=== PATIENT | female | born 1950 | race Caucasian/White ===

== ENCOUNTER → 2016-02-29 | Outpatient (CLI) | payer MEDICARE ==
[~2016-02-29] MED LIST: ACET500C PO; AMLO5TAB2 PO; CAL-500T PO; CALCIUM LACTATE PO; CARV25TA PO; OMEP20CA3 PO; SPIR25TA2 PO; VITA200019 PO; VITATAB11 PO; [UNRECOGNIZED DRUG - OTHER] TD; magnesium PO
--- NOTE | 2016-02-29 17:28 | REP ---
PELVIC ULTRASOUND: Real-time sonographic evaluation of the pelvis performed utilizing transabdominal and endovaginal technique. The bladder measures 13.3 x 6.5 x 8.8 cm. The uterus measures 11.8 x 5.0 x 6.9 cm. Endometrial stripe measures 5 mm. There is no endometrial fluid collection. Right-sided fibroid measures 3.5 x 3.0 x 2.9 cm. There appears to be an 8 mm fibroid posteriorly. Ovaries are normal in size and echotexture, the right ovary measuring 2.6 x 1.9 x 2.3 cm and left ovary 2.5 x 1.4 x 1.9 cm. There is no adnexal mass or free fluid. IMPRESSION: Uterine fibroids. No adnexal mass or free fluid.
== END ==
LOC: M WHC 12:54
PROVIDERS: ATTEND Nurse Practitioner Women's Health
DX: D25.9 Leiomyoma of uterus, unspecified (principal)

== ENCOUNTER → 2016-03-14 | Outpatient (REF) | payer MEDICARE ==
[2016-03-14 11:55] LABS: ALBUMIN 3.7 GM/DL (3.2-5.2); ALBUMIN/GLOBULIN RATIO 1.32 (1.00-1.93); ALKALINE PHOSPHATASE 88 U/L (45-117); ALT/SGPT 25 U/L (12-78); ANION GAP 12 MEQ/L (8-16); AST/SGOT 13 U/L (15-37); BLOOD UREA NITROGEN 15 MG/DL (7-18); CALCIUM LEVEL 8.9 MG/DL (8.8-10.2); CARBON DIOXIDE LEVEL 27 MEQ/L (21-32); CHLORIDE LEVEL 106 MEQ/L (98-107); CHOLESTEROL LEVEL 178 MG/DL (<200); CREATININE FOR GFR 0.72 MG/DL (0.55-1.02); GLOMERULAR FILTRATION RATE > 60.0 (>45); GLUCOSE, FASTING 102 MG/DL (80-110); POTASSIUM SERUM 4.3 MEQ/L (3.5-5.1); SODIUM LEVEL 145 MEQ/L (136-145); TOTAL PROTEIN 6.5 GM/DL (6.4-8.2); TRIGLYCERIDES LEVEL 165 MG/DL (<150)
== END ==
LOC: M SFHCPLAZ 08:30
PROVIDERS: ATTEND Family Medicine
DX: E78.2 Mixed hyperlipidemia (principal); K21.0 Gastro-esophageal reflux disease with esophagitis

== ENCOUNTER → 2016-05-29 | Outpatient (CLI) | payer MEDICARE | LOC: M PAIN 08:40 | PROVIDERS: ATTEND Nurse Practitioner Family | DX: Z09 Encounter for follow-up examination after completed treatment for conditions other than malignant neoplasm (principal); G89.29 Other chronic pain; M47.816 Spondylosis without myelopathy or radiculopathy, lumbar region; G57.00 Lesion of sciatic nerve, unspecified lower limb; I10 Essential (primary) hypertension; K21.9 Gastro-esophageal reflux disease without esophagitis; E78.5 Hyperlipidemia, unspecified; E88.81 Metabolic syndrome and other insulin resistance; E55.9 Vitamin D deficiency, unspecified; Z88.8 Allergy status to other drugs, medicaments and biological substances; Z88.2 Allergy status to sulfonamides; Z79.899 Other long term (current) drug therapy ==

== ENCOUNTER → 2016-06-14 | Outpatient (REF) | payer MEDICARE ==
[2016-06-14 12:12] LABS: ALBUMIN 3.6 GM/DL (3.2-5.2); ALBUMIN/GLOBULIN RATIO 1.24 (1.00-1.93); ALKALINE PHOSPHATASE 93 U/L (45-117); ALT/SGPT 26 U/L (12-78); ANION GAP 8 MEQ/L (8-16); AST/SGOT 13 U/L (15-37); BILIRUBIN,TOTAL 0.8 MG/DL (0.2-1.0); BLOOD UREA NITROGEN 10 MG/DL (7-18); CALCIUM LEVEL 8.4 MG/DL (8.8-10.2); CARBON DIOXIDE LEVEL 28 MEQ/L (21-32); CHLORIDE LEVEL 108 MEQ/L (98-107); CREATININE FOR GFR 0.75 MG/DL (0.55-1.02); GLOMERULAR FILTRATION RATE > 60.0 (>45); GLUCOSE, FASTING 97 MG/DL (80-110); POTASSIUM SERUM 4.1 MEQ/L (3.5-5.1); SODIUM LEVEL 144 MEQ/L (136-145); TOTAL PROTEIN 6.5 GM/DL (6.4-8.2)
== END ==
LOC: M SFHCPLAZ 08:31
PROVIDERS: ATTEND Nurse Practitioner Family
DX: I10 Essential (primary) hypertension (principal); E55.9 Vitamin D deficiency, unspecified

== ENCOUNTER → 2016-07-07 | Outpatient (CLI) | payer MEDICARE ==
--- NOTE | 2016-07-07 12:27 | REPMRS ---
Patient History The patient states she has not had a clinical breast exam in over a year. Patient is postmenopausal. Family history of breast cancer in sister at age 48. Digital Woman Screen Mammo: July 07, 2016 - Exam #: [id number] Bilateral CC and MLO view(s) were taken. Technologist: Maribell Fuchs, Technologist Prior study comparison: July 08, 2015, digital woman screen mammo performed at [facility] to [facility]. May 19, 2014, digital woman screen mammo performed at [facility] to [facility]. FINDINGS: There are scattered fibroglandular densities. There has been no change in the appearance of the mammogram from the prior studies. There is a mild amount of residual fibroglandular tissue which is fairly symmetric. There is no interval development of dominant mass, architectural distortion, or clustered microcalcification suggestive of malignancy. ASSESSMENT: BI-RADS/ACR category 1 mammogram. Negative. Recommendation Routine screening mammogram in 1 year (for women over age 40). This mammogram was interpreted with the aid of an FDA-approved computer-aided dectection system. Electronically Signed By: Kip Khanna MD 07/07/16 [id number]
== END ==
LOC: M WHC 11:07
PROVIDERS: ATTEND Family Medicine
DX: Z12.31 Encounter for screening mammogram for malignant neoplasm of breast (principal); Z78.0 Asymptomatic menopausal state

== ENCOUNTER → 2016-11-27 | Outpatient (CLI) | payer MEDICARE ==
--- NOTE | 2016-12-26 02:25 | ECWPNPC ---
PATIENT NAME: REE PERRY : 1950 GENDER: FEMALE VISIT DATE: 11/27/2016 DISCHARGE DATE: 11/27/16919 VISIT LOCKED DATE TIME: PHYSICIAN: FRED WILKINS PHYSICIAN PAGER NO: [phone] RESOURCE: FRED WILKINS REASON FOR APPOINTMENT 1. BACK HISTORY OF PRESENT ILLNESS HISTORY OF PRESENT ILLNESS: PAIN THE PATIENT DESCRIBES THE PAIN... FALL RISK SCREENING: SCREENING :NO FALLS IN THE PAST YEAR TODAY'S VISIT: NOTES: RATES PAIN TODAY 0/10. NOTES OCCASIONAL DISCOMFORT BUT OVERALL DOING VERY WELL. TREATS WITH OCASIONAL ASA AND ICE WHEN NEEDED.. CURRENT MEDICATIONS UNKNOWN TYLENOL 500 MG TABLET 1 TABLET NEEDED ORALLY NEEDED FOR HEADACHE UNKNOWN BLOOD PRESSURE CUFF 1 DX 401.9 1 1 WEEKLY UNKNOWN VITAMIN B COMPLEX 100 MG CAPSULE 1 TABLET ORALLY ONCE A DAY UNKNOWN CALCIUM 600 + D 600-400 MG-UNIT TABLET OTC 1 TABLET ORALLY TWICE A DAY UNKNOWN PROBIOTIC - CAPSULE 1 CAP ORALLY DAILY UNKNOWN METROCREAM 0.75 % 30 GRAM TUBE 1 APPLICATION A THIN LAYER TO FACE EXTERNALLY DAILY NEEDED UNKNOWN PRAVASTATIN SODIUM 20 MG TABLET 1 TABLET ORALLY BEFORE BEDTIME UNKNOWN VITAMIN D-3 1000 UNIT CAPSULE 2 TAB(S) P.O. ONCE A DAY UNKNOWN OMEPRAZOLE 20MG 20MG TABLET 1 TAB(S) ORAL DAILY UNKNOWN AMBIEN 5 MG TABLET 1 TABLET AT BEDTIME ORALLY AT BEDTIME NEEDED FOR SLEEP UNKNOWN NORVASC 5 MG TABLET 1 TABLET ORALLY ONCE A DAY UNKNOWN COREG 25 MG TABLET 1 TABLET ORALLY BID MEDICATION LIST REVIEWED AND RECONCILED WITH THE PATIENT PAST MEDICAL HISTORY HYPERTENSION ESOPHAGEAL REFLUX HYPERLIPIDEMIA IMPAIRED FASTING GLUCOSE METABOLIC SYNDROME COLONIC POLYPS BX 10/01 ECHO 12/2010 EF NORMAL. GRADE I DIASTOLIC DYSFUNCTION. MILD LVH. AORTIC SCLEROSIS WITHOUT STENOSIS. POSTMENOPAUSE THYROID NODULE US 02/06--FNA BENIGN X 2 02/28, 06/08; IN-OFFICE US AT [facility]/DR Nelson FREITAS 01/10 W/O SIG CHANGE VITAMIN D DEFICIENCY LUMBARDEGENERATIVE DISC DISEASE WIT LEFT LE RADICULOPATHY - INJECTIONS PAIN CLINIC DEXA 07/11 NL, REPEAT IN 5 YRS (Z SCORE HIGH, SO ? RELIABILTY) ALLERGIES LIPITOR : MYALGIAS: SIDE EFFECTS PCN: RASH: ALLERGY SULFA: RASH: ALLERGY MICHELLE INHIBITORS: COUGH: SIDE EFFECTS LOTENSIN: COUGH: SIDE EFFECTS HCTZ: ROSACEA WORSENS: SIDE EFFECTS DIOVAN: COLETTETTERY: SIDE EFFECTS SPIRONOLACTONE: DIARRHEA: SIDE EFFECTS REVIEW OF SYSTEMS REVIEWED BY: PROVIDER: FRED CRESPO . CONSTITUTIONAL: ANY CHANGE IN YOUR MEDICAL CONDITION? NO . CHILLS NO . FEVER NO . INFECTION: DO YOU HAVE NEW INFECTIONS? NO . DO YOU HAVE HISTORY OF MRSA? NO . MUSCULOSKELETAL: ANY NEW PATTERNS OF PAIN OR NUMBNESS? NO . GASTROENTEROLOGY: ANY NEW CHANGE IN BOWEL CONTROL? NO . GENITOURINARY: ANY NEW CHANGE IN BLADDER CONTROL? NO . IS THERE A CHANCE YOU COULD BE ? NO . HEMATOLOGY/LYMPH: DO YOU TAKE ANY BLOOD THINNERS? (FOR EXAMPLE- COUMADIN, PLAVIX, AGGRENOX, PLATEL, PRADAXA, OR XARELTO) NO . WHEN WAS YOUR LAST DOSE? DATE: TIME: . NEUROLOGY: HAVE YOU FALLEN IN THE PAST 6 MONTHS? NO . ANY NEW EXTREMITY NUMBNESS OR WEAKNESS? NO . CARDIOLOGY: DO YOU HAVE A PACEMAKER OR DEFIBRILLATOR? NO . RESPIRATORY: HAVE YOU BEEN SICK IN THE PAST WEEK? NO . FEVER NO . FLU LIKE SYMPTOMS? NO . COUGH NO . INTEGUMENTARY: DO YOU HAVE ANY RASHES OR OPEN SORES? NO . ALLERGIC/IMMUNO: ARE YOU ALLERGIC TO SHELLFISH OR IV DYE? NO . ANY NEW ALLERGIES? NO . PSYCHIATRIC: DO YOU HAVE THOUGHTS OF HURTING YOURSELF OR SOMEONE ELSE? NO . ARE YOU ABUSED, NEGLECTED, OR IN AN UNSAFE ENVIRONMENT? NO . ENDOCRINOLOGY: ARE YOU DIABETIC? NO . OTHER: DO YOU NEED ANY PRESCRIPTIONS? NO . IF YES, PLEASE LIST: ____ . ANY NEW PROBLEMS WITH YOUR MEDICATIONS? NO . WHEN DID YOU LAST EAT? ____ . WHEN DID YOU LAST DRINK? ____ . WHAT DID YOU LAST DRINK? ____ . NAME OF PERSON DRIVING YOU HOME? ____ . DO YOU HAVE ANY OTHER QUESTIONS OR CONCERNS NO . VITAL SIGNS WT 222 LBS, HT 64 IN, BMI 38.10 INDEX, BP 141/76 MM HG, HR 77 /MIN, RR 18 /MIN, TEMP 98.2 F, OXYGEN SAT % 97, SAFE IN ENV? (Y/N) YES, REVIEWED BY: KG. EXAMINATION GENERAL EXAMINATION: LUNGS:CLEAR TO AUSCULTATION BILATERALLY. HEART:HEART RATE REGULAR. MUSCULOSKELETAL:MUSCLE STRENGTH TESTING 5/5 BILATERAL. MILD TENDERNESS OVER LUMBAR SPINOUS PROCESSES AND ACROSS THE LUMBOSACRAL AXIS. ABLE TO RISE TO STANDING POSITION WITHOUT SIGNIFICANT DIFFICULTY. NO TENDERNESS/TIGHTNESS NOTED WITH PALPATION OVER PIRIFORMIS BILATERALLY. NEGATIVE GINI SIGN. ASSESSMENTS LUMBAR SPONDYLOSIS - M47.816 (PRIMARY) PIRIFORMIS SYNDROME - G57.00 TREATMENT LUMBAR SPONDYLOSIS NOTES: CONTINUE EXERCISES, STRETCHES. PROCEDURE CODES FA211 ESTABILISHED PATIENT [facility] CHARGE G8730 PAIN ASSESS POS TOOL F/U PLAN DOC G8427 DOC MEDS VERIFIED W/PT OR RE DISPOSITION & COMMUNICATION FOLLOW UP OCT 2017 (REASON: BACK) ELECTRONICALLY SIGNED BY JUAN FERNANDEZ ON 12/25/2016 AT 08:42 AM EDT DISCLAIMER : THIS IS A VISIT SUMMARY EXTRACTED FROM THE [employer] CHART. IT IS NOT A COPY OF THE [employer] PROGRESS NOTE. TANNA
== END ==
LOC: M PAIN 08:45
PROVIDERS: ATTEND Nurse Practitioner Family
DX: G89.29 Other chronic pain (principal); M47.816 Spondylosis without myelopathy or radiculopathy, lumbar region; G57.00 Lesion of sciatic nerve, unspecified lower limb; I11.9 Hypertensive heart disease without heart failure; E78.2 Mixed hyperlipidemia; E74.9 Disorder of carbohydrate metabolism, unspecified; K21.0 Gastro-esophageal reflux disease with esophagitis; E55.9 Vitamin D deficiency, unspecified; G47.00 Insomnia, unspecified; Z88.8 Allergy status to other drugs, medicaments and biological substances; Z88.2 Allergy status to sulfonamides; Z79.899 Other long term (current) drug therapy

== ENCOUNTER → 2016-12-22 | Outpatient (REF) | payer MEDICARE ==
[2016-12-22 12:26] LABS: ALBUMIN 3.8 GM/DL (3.2-5.2); ALBUMIN/GLOBULIN RATIO 1.52 (1.00-1.93); ALKALINE PHOSPHATASE 83 U/L (45-117); ALT/SGPT 28 U/L (12-78); ANION GAP 9 MEQ/L (8-16); AST/SGOT 12 U/L (15-37); BILIRUBIN,TOTAL 0.9 MG/DL (0.2-1.0); BLOOD UREA NITROGEN 14 MG/DL (7-18); CALCIUM LEVEL 9.1 MG/DL (8.8-10.2); CARBON DIOXIDE LEVEL 27 MEQ/L (21-32); CHLORIDE LEVEL 110 MEQ/L (98-107); CHOLESTEROL LEVEL 155 MG/DL (<200); CREATININE FOR GFR 0.68 MG/DL (0.55-1.02); GLOMERULAR FILTRATION RATE > 60.0 (>45); GLUCOSE, FASTING 106 MG/DL (80-110); POTASSIUM SERUM 4.4 MEQ/L (3.5-5.1); SODIUM LEVEL 146 MEQ/L (136-145); TOTAL PROTEIN 6.3 GM/DL (6.4-8.2); TRIGLYCERIDES LEVEL 103 MG/DL (<150)
== END ==
LOC: M SFHCPLAZ 08:15
PROVIDERS: ATTEND Family Medicine
DX: E78.2 Mixed hyperlipidemia (principal)

== ENCOUNTER → 2017-07-16 | Outpatient (CLI) | payer MEDICARE | LOC: M WHC 13:56 | DX: Z12.31 Encounter for screening mammogram for malignant neoplasm of breast (principal) | CPT/HCPCS: 77067 ==

== ENCOUNTER → 2017-12-03 | Outpatient (CLI) | payer MEDICARE | LOC: M PAIN 09:45 | DX: M47.816 Spondylosis without myelopathy or radiculopathy, lumbar region (principal); G57.00 Lesion of sciatic nerve, unspecified lower limb; I10 Essential (primary) hypertension; K21.9 Gastro-esophageal reflux disease without esophagitis; E04.1 Nontoxic single thyroid nodule; E78.5 Hyperlipidemia, unspecified; R73.03 Prediabetes; E55.9 Vitamin D deficiency, unspecified; Z88.0 Allergy status to penicillin; Z88.2 Allergy status to sulfonamides; Z88.8 Allergy status to other drugs, medicaments and biological substances; Z79.899 Other long term (current) drug therapy | CPT/HCPCS: G0463 ==

== ENCOUNTER → 2018-01-04 | Outpatient (REF) | payer MEDICARE ==
[2018-01-04 10:54] LABS: ALBUMIN 3.8 GM/DL (3.2-5.2); ALBUMIN/GLOBULIN RATIO 1.36 (1.00-1.93); ALKALINE PHOSPHATASE 103 U/L (45-117); ALT/SGPT 28 U/L (12-78); ANION GAP 7 MEQ/L (8-16); AST/SGOT 16 U/L (7-37); BILIRUBIN,TOTAL 0.7 MG/DL (0.2-1.0); BLOOD UREA NITROGEN 16 MG/DL (7-18); CALCIUM LEVEL 8.9 MG/DL (8.8-10.2); CARBON DIOXIDE LEVEL 26 MEQ/L (21-32); CHLORIDE LEVEL 109 MEQ/L (98-107); CHOLESTEROL LEVEL 162 MG/DL (<200); CHOLESTEROL RISK RATIO 3.056 (<5); CREATININE FOR GFR 0.61 MG/DL (0.55-1.30); FREE T4 1.04 NG/DL (0.76-1.46); GLOMERULAR FILTRATION RATE > 60.0 (>45); GLUCOSE, FASTING 113 MG/DL (70-100); HDL CHOLESTEROL 53 MG/DL (>40); LDL CHOLESTEROL 87 MG/DL (<100); NON-HDL-C 109 MG/DL; POTASSIUM SERUM 4.4 MEQ/L (3.5-5.1); SODIUM LEVEL 142 MEQ/L (136-145); THYROID STIMULATING HORMONE 0.813 uIU/ML (0.358-3.740); TOTAL PROTEIN 6.6 GM/DL (6.4-8.2); TRIGLYCERIDES LEVEL 110 MG/DL (<150)
[2018-01-04 11:19] LABS: ESTIMATED AVERAGE GLUCOSE 117 MG/DL (60-110); HEMOGLOBIN A1c 5.7 %
[2018-01-04 12:03] LABS: TOTAL 25(OH) VITAMIN D 22.8 NG/ML (30.0-100.0)
[2018-01-04 12:43] LABS: HEP C VIRUS AB SCREEN MEDICARE 0.1 INDEX (<0.8)
== END ==
LOC: M SFHCPLAZ 08:16
DX: E78.2 Mixed hyperlipidemia (principal); E04.2 Nontoxic multinodular goiter; E74.9 Disorder of carbohydrate metabolism, unspecified; E55.9 Vitamin D deficiency, unspecified; Z11.59 Encounter for screening for other viral diseases; Z79.899 Other long term (current) drug therapy
CPT/HCPCS: 84443

== ENCOUNTER → 2018-07-29 | Outpatient (CLI) | payer MEDICARE ==
[~2018-07-29] MED LIST changes: +SPIR-10 PO; -SPIR25TA2 PO
--- NOTE | 2018-07-29 16:15 | REPMRS ---
Patient History The patient states she has not had a clinical breast exam in over a year. Patient is postmenopausal. Family history of breast cancer at age 48 in sister. No Hormone Replacement Therapy 3D TOMOSYNTHESIS WAS PERFORMED. Digital Woman Screen Mammo: July 29, 2018 - Exam #: [id number] Bilateral CC and MLO view(s) were taken. Technologist: Maribell Fuchs, Technologist Prior study comparison: July 16, 2017, digital woman screen mammo performed at [facility]. July 07, 2016, digital woman screen mammo performed at [facility]. FINDINGS: There are scattered fibroglandular densities. There has been no change in the appearance of the mammogram from the prior studies. There is a mild amount of residual fibroglandular tissue which is fairly symmetric. There is no interval development of dominant mass, architectural distortion, or clustered microcalcification suggestive of malignancy. Assessment: BI-RADS/ACR category 1 mammogram. Negative Mammogram. Recommendation Routine screening mammogram in 1 year (for women over age 40). This mammogram was interpreted with the aid of an FDA-approved computer-aided dectection system. Electronically Signed By: Kip Khanna MD 07/29/18 0099
== END ==
LOC: M WHC 13:42
PROVIDERS: ATTEND Family Medicine
DX: Z12.31 Encounter for screening mammogram for malignant neoplasm of breast (principal); Z80.3 Family history of malignant neoplasm of breast

== ENCOUNTER → 2018-08-28 | Outpatient (CLI) | payer MEDICARE ==
[~2018-08-28] MED LIST changes: +ACET-683 PO; +AMBI5TAB PO; +AMLO10TA5 PO; +AMLO5TAB6; +B COTAB3 PO; +CALC1TAB63 PO; +OMEP-218 PO; +PRAV20TA2 PO; +PROBCAP14 PO; +TIZA4TAB4 PO; +VITA-144 PO; +[UNRECOGNIZED DRUG - OTHER] PO
--- NOTE | 2018-09-04 23:51 | ECWPNPC ---
PATIENT NAME: REE PERRY : 1950 GENDER: FEMALE VISIT DATE: 08/28/2018 DISCHARGE DATE: 08/28/18941 VISIT LOCKED DATE TIME: PHYSICIAN: JANET LICEA PHYSICIAN PAGER NO: [phone] RESOURCE: JANET LICEA REASON FOR APPOINTMENT 1. BACK/INCREASED PAIN HISTORY OF PRESENT ILLNESS HISTORY OF PRESENT ILLNESS: 68 YEAR OLD FEMALE IN WITH COMPLAINTS OF INCREASED BACK PAIN. WHEN ASKED SHE ADMITS THE PAIN HAS DECREASED SIGNIFICANTLY SINCE SHE MADE THE APPT. SHE STATES SHE HAS BEEN USING A BENGAY TYPE PRODUCT AND IT HAS BEEN HELPFUL AND SHE CURRENTLY RATES HER PAIN AT A 5/10. 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 PAIN THE PATIENT DESCRIBES THE PAIN... FALL RISK SCREENING: SCREENING :NO FALLS REPORTED IN THE LAST YEAR CURRENT MEDICATIONS TAKING TYLENOL 500 MG TABLET 1 TABLET NEEDED ORALLY NEEDED FOR HEADACHE TAKING VITAMIN B COMPLEX 100 MG CAPSULE 1 TABLET ORALLY ONCE A DAY TAKING CALCIUM 600 + D 600-400 MG-UNIT TABLET OTC 1 TABLET ORALLY TWICE A DAY TAKING PROBIOTIC - CAPSULE 1 CAP ORALLY DAILY TAKING METROCREAM 0.75 % 30 GRAM TUBE 1 APPLICATION A THIN LAYER TO FACE EXTERNALLY DAILY NEEDED TAKING AMBIEN 5 MG TABLET 1 TABLET AT BEDTIME ORALLY AT BEDTIME NEEDED FOR SLEEP TAKING NORVASC 5 MG TABLET 1 TABLET ORALLY ONCE A DAY TAKING COREG 25 MG TABLET 1 TABLET ORALLY BID TAKING PRAVASTATIN SODIUM 20 MG TABLET 1 TABLET ORALLY BEFORE BEDTIME TAKING FLUTICASONE PROPIONATE 50 MCG/ACT SUSPENSION 1 SPRAY IN EACH NOSTRIL NASALLY ONCE A DAY TAKING VITAMIN D3 5000 UNIT TABLET 1 TABLET ORALLY ONCE A DAY TAKING OMEPRAZOLE 20MG 20MG TABLET 1 TAB(S) ORAL DAILY TAKING BLOOD PRESSURE CUFF 1 DX 401.9 1 1 WEEKLY NOT-TAKING SHINGRIX 50 MCG SUSPENSION RECONSTITUTED DIRECTED INTRAMUSCULAR DIRECTED DISCONTINUED NORVASC 5 MG TABLET TAKE ONE TABLET BY MOUTH EVERY DAY , NOTES: DUPLICATE DISCONTINUED COREG 25 MG TABLET TAKE ONE TABLET BY MOUTH TWICE A DAY , NOTES: DUPLICATE MEDICATION LIST REVIEWED AND RECONCILED WITH THE PATIENT PAST MEDICAL HISTORY HYPERTENSION ESOPHAGEAL REFLUX HYPERLIPIDEMIA PREDIABETES METABOLIC SYNDROME COLONIC POLYPS BX 10/01 ECHO 12/2010 EF NORMAL. GRADE I DIASTOLIC DYSFUNCTION. MILD LVH. AORTIC SCLEROSIS WITHOUT STENOSIS. POSTMENOPAUSE THYROID NODULE US 02/06--FNA BENIGN X 2 02/28, 06/08; IN-OFFICE US AT [facility]/DR Nelson FREITAS 01/10 W/O SIG CHANGE VITAMIN D DEFICIENCY LUMBARDEGENERATIVE DISC DISEASE WIT LEFT LE RADICULOPATHY - INJECTIONS PAIN CLINIC DEXA 07/11 NL, REPEAT IN 5 YRS (Z SCORE HIGH, SO ? RELIABILTY) ALLERGIES LIPITOR : MYALGIAS - SIDE EFFECTS PCN: RASH - ALLERGY SULFA: RASH - ALLERGY MICHELLE INHIBITORS: COUGH - SIDE EFFECTS LOTENSIN: COUGH - SIDE EFFECTS HCTZ: ROSACEA WORSENS - SIDE EFFECTS DIOVAN: JITTERY - SIDE EFFECTS SPIRONOLACTONE: DIARRHEA - SIDE EFFECTS SURGICAL HISTORY COLONOSCOPY 2005 (ADENOMATOUS), 2009 WAS NL 2002, 2005, 2009, 2014 D+C LIPOMA BACK ULTRASOUND AND BIOSPY ON NECK 02/2012 UMBILICAL HERNIS REPAIR 08/08 FNA THYROID NODULE--BENIGN X 2 03/10, 06/[address] CONNELL 12/02/14 FAMILY HISTORY FATHER: 92 YRS MOTHER: ALIVE 93 YRS, DEMENTIA SIBLINGS: ALIVE, DM 1 BROTHER, BREAST CANCER 1 SISTER, DIAGNOSED WITH DIABETES, CANCER 2 BROTHER(S) , 5 SISTER(S) - HEALTHY. SOCIAL HISTORY GENERAL: TOBACCO USE ARE YOU A:NONSMOKER NEVER SMOKER HIV / HEP-C SCREENING HIV TEST OFFERED TO PATIENT:YES DATE OFFERED:07/13/2017 TEST ACCEPTED:NO HEP-C TEST OFFERED TO PATIENT:YES DATE OFFERED:07/13/2017 REASON:PATIENT DECLINED TEST ACCEPTED:YES BROCHURE PROVIDED TO PATIENTYES OTHERS AT HOME: MOTHER. 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 DIET: REGULAR. LANGUAGE TUVALUAN. DOMESTIC VIOLENCE DO YOU FEEL SAFE IN YOUR ENVIRONMENT?YES BMI CARE GOAL FOLLOW-UP ABOVE NORMAL BMI FOLLOW-UPGIVING ENCOURAGEMENT TO EXERCISE RECREATIONAL DRUG USE: NEVER DRUG USE?NO EXERCISE: NO REGULAR EXERCISE. LEARNING BARRIERS / SPECIAL NEEDS CHANGE FROM LAST VISIT?NO BARRIERS TO LEARNING?NO HEARING IMPAIRED?NO VISION IMPAIRED?YES COGNITIVELY IMPAIRED?NO :CORRECTIVE LENSES READINESS TO LEARN?YES LEARNING PREFERENCES?NO LEARNING CAPABILITIES PRESENT?YES EMOTIONAL BARRIERS?NO SPECIAL DEVICES?NO DRY MAN NEEDED?NO PAIN CLINIC PFS, CLERGY, PUBLIC HEALTH REFERRALS PFS REFERRAL NEEDED?NO CLERGY REFERRAL NEEDED?NO PUBLIC HEALTH REFERRAL NEEDED?NO WAS THE PROVIDER NOTIFIED OF ANY PERTINENT INFO? N/A HAS THE PATIENT BEEN EDUCATED REGARDING HIS/HER PLAN OF CARE?YES HAS THE PATIENT BEEN EDUCATED REGARDING PAIN, THE RISK FOR PAIN, THE IMPORTANCE OF EFFECTIVE PAIN MANAGEMENT, AND THE PAIN ASSESSMENT PROCESS?YES LATEX QUESTIONNAIRE LATEX ALLERGY : HAVE YOU EVER DEVELOPED ANY TYPE OF REACTION AFTER HANDLING LATEX PRODUCTS SUCH RUBBER GLOVES, CONDOMS, DIAPHRAGMS, BALLOONS, SOCKS, OR UNDERWEAR?NO LATEX ALLERGY : HAVE YOU EVER DEVELOPED ANY TYPE OF REACTION DURING OR AFTER DENTAL APPOINTMENT, VAGINAL/RECTAL EXAMINATION, SURGICAL PROCEDURE, OR ANY OTHER EXPOSURE?NO LATEX RISK : HAVE YOU EVER HAD ANY DIFFICULTY BREATHING OR HIVES AFTER EATING OR HANDLING ANY FRUITS, OR VEGETABLES; SUCH KIWI, BANANAS, STONE FRUITS, OR CHESTNUTSNO LATEX RISK : DO YOU HAVE A PREVIOUS PERSONAL HISTORY OF MORE THAN NINE SURGERIES, SPINA BIFIDA, OR REPEATED CATHERTIZATIONS? NO LATEX RISK : ARE YOU FREQUENTLY EXPOSED TO LATEX PRODUCTS IN YOUR OCCUPATION?NO DATE ASKED : 08/28/2018 CAFFEINE CAFFEINE USE?YES HOW OFTEN AND HOW MUCH? ONE CUP OF COFFEE IN MORNING AND TEA IN EVENING ADVANCE DIRECTIVE ADVANCE DIRECTIVE DISCUSSED WITH PATIENT:YES 08/28/18 PT. DOES NOT HAVE ANY ADVANCED DIRECTIVES. HCP INFORMATION OFFERED AND DECLINED AT THIS TIME. AD MANDAEISM SCIENTOLOGY. MARITAL STATUS: SINGLE. 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 SEXUAL HX HAD SEX IN THE LAST 12 MONTHS (VAGINAL, ORAL, OR ANAL)?NO HAVE YOU EVER HAD AN STD?NO HOSPITALIZATION/MAJOR DIAGNOSTIC PROCEDURE DENIES PAST HOSPITALIZATION REVIEW OF SYSTEMS REVIEWED BY: PROVIDER: MEGAN MARTINEZ . CONSTITUTIONAL: ANY CHANGE IN YOUR MEDICAL CONDITION? NO . CHILLS NO . FEVER NO . INFECTION: DO YOU HAVE NEW INFECTIONS? NO . DO YOU HAVE HISTORY OF MRSA? NO . MUSCULOSKELETAL: ANY NEW PATTERNS OF PAIN OR NUMBNESS? NO . GASTROENTEROLOGY: ANY NEW CHANGE IN BOWEL CONTROL? NO . GENITOURINARY: ANY NEW CHANGE IN BLADDER CONTROL? NO . IS THERE A CHANCE YOU COULD BE ? NO . HEMATOLOGY/LYMPH: DO YOU TAKE ANY BLOOD THINNERS? (FOR EXAMPLE- COUMADIN, PLAVIX, AGGRENOX, PLATEL, PRADAXA, OR XARELTO) NO . WHEN WAS YOUR LAST DOSE? DATE: TIME: . NEUROLOGY: HAVE YOU FALLEN IN THE PAST 12 MONTHS? NO . ANY NEW EXTREMITY NUMBNESS OR WEAKNESS? NO . CARDIOLOGY: DO YOU HAVE A PACEMAKER OR DEFIBRILLATOR? NO . RESPIRATORY: HAVE YOU BEEN SICK IN THE PAST WEEK? NO . FEVER NO . FLU LIKE SYMPTOMS? NO . COUGH NO . INTEGUMENTARY: DO YOU HAVE ANY RASHES OR OPEN SORES? NO . ALLERGIC/IMMUNO: ARE YOU ALLERGIC TO IV DYE? NO . ANY NEW ALLERGIES? NO . PSYCHIATRIC: DO YOU HAVE THOUGHTS OF HURTING YOURSELF OR SOMEONE ELSE? NO . ARE YOU ABUSED, NEGLECTED, OR IN AN UNSAFE ENVIRONMENT? NO . ENDOCRINOLOGY: ARE YOU DIABETIC? NO . OTHER: DO YOU NEED ANY PRESCRIPTIONS? NO . IF YES, PLEASE LIST: ____ . ANY NEW PROBLEMS WITH YOUR MEDICATIONS? NO . WHEN DID YOU LAST EAT? ____ . WHEN DID YOU LAST DRINK? ____ . WHAT DID YOU LAST DRINK? ____ . NAME OF PERSON DRIVING YOU HOME? ____ . DO YOU HAVE ANY OTHER QUESTIONS OR CONCERNS NO . VITAL SIGNS WT 225.8 LBS, HT 64 IN, BMI 38.75 INDEX, BP 184/81 MM HG, HR 68 /MIN, RR 18 /MIN, TEMP 96.8 F, OXYGEN SAT % 94, SAFE IN ENV? (Y/N) Y, NA INITIALS MP 0856, REVIEWED BY: AD. EXAMINATION GENERAL EXAMINATION: GENERALNO ACUTE DISTRESS, WELL NOURISHED AND HYDRATED. PSYCHAPPROPRIATE MOOD AND AFFECT . LUNGS:CLEAR TO AUSCULTATION BILATERALLY, NO WHEEZES, RHONCHI, RALES. HEART:NO MURMURS, REGULAR RATE AND RHYTHM. BACK:DENIES POINT TENDERNESS. NO ERYTHEMA, INCREASED WARMTH, OR SKIN ERUPTIONS NOTED.. ASSESSMENTS LUMBAR SPONDYLOSIS - M47.816 (PRIMARY) TREATMENT LUMBAR SPONDYLOSIS START TIZANIDINE HCL TABLET, 4 MG, 1 TABLET NEEDED, ORALLY, AT BEDTIME, 30 DAYS, 30 CLINICAL NOTES: 68 YEAR OLD FEMALE WITH HX OF LUMBAR SPONDYLOSIS IN WITH COMPLAINTS OF INCREASED BACK PAIN. GIVEN PRESENTING SYMPTOMS AND RESULTS OF PHYSICAL EXAMINATION RECOMMENDED TIZANIDINE 4MG NEEDED BEFORE BED WITH FOLLOW UP IN 1 MONTH TO DETERMINE EFFICACY OF TREATMENT. POTENTIAL SEDATION FROM TIZANIDINE WAS DISCUSSED WITH PATIENT. PATIENT HAS EXPRESSED UNDERSTANDING OF AND WAS IN AGREEMENT WITH TX PLAN. GIVEN TIME TO ASK QUESTIONS AND EXPRESS CONCERNS. . PREVENTIVE MEDICINE PAIN CLINIC TEACHING: MEDICATIONS PRINTED INFORMATION ON TIZANIDINE GIVEN TO AND REVIEWED WITH PT AND SHE VERBALIZED UNDERSTANDING. AD. PROCEDURE CODES FA211 ESTABILISHED PATIENT [facility] CHARGE DISPOSITION & COMMUNICATION FOLLOW UP 4 WEEKS (REASON: MEDICATION EVALUATION) ELECTRONICALLY SIGNED BY ZAK URIBE ON 09/04/2018 AT 04:34 PM EDT DISCLAIMER : THIS IS A VISIT SUMMARY EXTRACTED FROM THE [employer] CHART. IT IS NOT A COPY OF THE [employer] PROGRESS NOTE. TANNA
== END ==
LOC: M PAIN 09:00
PROVIDERS: ATTEND Family Medicine
DX: M47.816 Spondylosis without myelopathy or radiculopathy, lumbar region (principal); I10 Essential (primary) hypertension; K21.9 Gastro-esophageal reflux disease without esophagitis; E78.5 Hyperlipidemia, unspecified; E55.9 Vitamin D deficiency, unspecified; M51.36 Other intervertebral disc degeneration, lumbar region; Z86.010 Personal history of colon polyps; E88.81 Metabolic syndrome and other insulin resistance; Z78.0 Asymptomatic menopausal state; Z79.899 Other long term (current) drug therapy; Z88.8 Allergy status to other drugs, medicaments and biological substances; Z88.2 Allergy status to sulfonamides; Z88.0 Allergy status to penicillin

== ENCOUNTER 2018-09-09 09:07 | Emergency (ER) | payer MEDICARE ==
[~2018-09-09] VITALS: Ht 162.6 cm; Wt 102.3 kg
[~2018-09-09 09:07] MED LIST changes: -ACET-683 PO; -AMBI5TAB PO; -AMLO10TA5 PO; -AMLO5TAB6; -B COTAB3 PO; -CALC1TAB63 PO; -OMEP-218 PO; -PRAV20TA2 PO; -PROBCAP14 PO; -TIZA4TAB4 PO; -VITA-144 PO; -[UNRECOGNIZED DRUG - OTHER] PO
[2018-09-09] MEDS ORDERED: TIZA4TAB4 (09:21)
[2018-09-09] MEDS ORDERED: AMLO5TAB6 (09:21)
[2018-09-09] MEDS ORDERED: PRAV20TA2 (09:21)
[2018-09-09] MEDS ORDERED: OMEP-218 (09:24)
[2018-09-09 10:49] LABS: BASO % 0.6 % (0.0-1.0); EOS % 0.2 % (0.0-3.0); HEMATOCRIT 44.9 % (36.0-47.0); HEMOGLOBIN 15.7 g/dl (12.0-15.5); LYMPH # 1.2 10^3/uL (1.5-4.5); LYMPH % 24.4 % (24.0-44.0); MEAN CORPUSCULAR HEMOGLOBIN 31.1 pg (27.0-33.0); MEAN CORPUSCULAR VOLUME 88.9 fl (80.0-96.0); MONO # 0.4 10^3/uL (0.0-0.8); MONO % 8.4 % (0.0-5.0); NEUTROPHILS # 3.3 10^3/uL (1.8-7.7); PLATELET COUNT, AUTOMATED 206 10^3/uL (150-450); RED BLOOD COUNT 5.05 10^6/uL (4.00-5.40)
[2018-09-09 11:11] LABS: BLOOD UREA NITROGEN 10 MG/DL (7-18); CALCIUM LEVEL 8.9 MG/DL (8.8-10.2); CARBON DIOXIDE LEVEL 26 MEQ/L (21-32); CHLORIDE LEVEL 110 MEQ/L (98-107); CREATININE FOR GFR 0.69 MG/DL (0.55-1.30); GLOMERULAR FILTRATION RATE > 60.0 (>39); GLUCOSE, FASTING 107 MG/DL (70-100); SODIUM LEVEL 145 MEQ/L (136-145)
[2018-09-09 11:21] LABS: APPEARANCE, URINE CLEAR (CLEAR); BACTERIA, URINE AUTO NEGATIVE (NEGATIVE); BILIRUBIN, URINE AUTO NEGATIVE (NEGATIVE); BLOOD, URINE BLOOD 1+ (NEGATIVE); COLOR, URINE YELLOW (YELLOW); GLUCOSE, URINE (UA) AUTO NEGATIVE (NEGATIVE); KETONE, URINE AUTO NEGATIVE (NEGATIVE); LEUKOCYTE ESTERASE, URINE AUTO NEGATIVE (NEGATIVE); NITRITE, URINE AUTO NEGATIVE (NEGATIVE); PROTEIN, URINE AUTO NEGATIVE (NEGATIVE); RBC, URINE AUTO 2 /HPF (0-3); SPECIFIC GRAVITY URINE AUTO 1.006 (1.002-1.035); SQUAMOUS EPITHELIAL CELL UR AU 0 /HPF (0-6); UROBILINOGEN, URINE AUTO 0.2 mg/dL (0.0-2.0); WBC, URINE AUTO 1 /HPF (0-3)
[2018-09-09] MEDS ORDERED: AMLO10TA5 PO (11:38)
[2018-09-09 11:54] VITALS: BP 138/47
--- NOTE | 2018-09-09 20:49 | ECGEPIP ---
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 Order Number: [id number] Reading MD: Haile Og Measurements Intervals [place] Rate: 66 P: 41 WV: 167 QRS: 8 QRSD: 109 T: 68 QT: 384 QTc: 403 Interpretive Statements SINUS RHYTHM POSSIBLE INFERIOR MYOCARDIAL INFARCTION, PROBABLY OLD ANTEROSEPTAL MYOCARDIAL INFARCTION, OF INDETERMINATE AGE Comparison tracing not on file Electronically Signed on 09-09-2018 20:49:24 EDT by Haile Og
== END 2018-09-09 11:55 | disposition home or self-care (01) ==
LOC: M ED 09:07
DX: I10 Essential (primary) hypertension (principal); K21.9 Gastro-esophageal reflux disease without esophagitis; Z79.899 Other long term (current) drug therapy; Z88.0 Allergy status to penicillin; Z88.1 Allergy status to other antibiotic agents; Z88.2 Allergy status to sulfonamides; Z88.8 Allergy status to other drugs, medicaments and biological substances

== ENCOUNTER → 2018-09-18 | Outpatient (REF) | payer MEDICARE ==
[~2018-09-18] MED LIST changes: +AMLO10TA5 PO; +AMLO5TAB6; +OMEP-218; +PRAV20TA2; +TIZA4TAB4
[2018-09-18 19:49] LABS: ALBUMIN 3.7 GM/DL (3.2-5.2); ALT/SGPT 26 U/L (12-78); BILIRUBIN,TOTAL 1.1 MG/DL (0.2-1.0); BLOOD UREA NITROGEN 15 MG/DL (7-18); CALCIUM LEVEL 8.7 MG/DL (8.8-10.2); CARBON DIOXIDE LEVEL 27 MEQ/L (21-32); CHLORIDE LEVEL 107 MEQ/L (98-107); CREATININE FOR GFR 0.93 MG/DL (0.55-1.30); GLOMERULAR FILTRATION RATE > 60.0 (>39); GLUCOSE, FASTING 109 MG/DL (70-100); POTASSIUM SERUM 3.6 MEQ/L (3.5-5.1); SODIUM LEVEL 141 MEQ/L (136-145); TOTAL PROTEIN 6.9 GM/DL (6.4-8.2)
[2018-09-18 19:51] LABS: HEMATOCRIT 44.8 % (36.0-47.0); MEAN CORPUSCULAR HEMOGLOBIN 30.5 pg (27.0-33.0); MEAN CORPUSCULAR HGB CONC 33.5 g/dl (32.0-36.5); MEAN CORPUSCULAR VOLUME 91.1 fl (80.0-96.0); PLATELET COUNT, AUTOMATED 203 10^3/uL (150-450); RED BLOOD COUNT 4.92 10^6/uL (4.00-5.40); WHITE BLOOD COUNT 6.1 10^3/uL (4.0-10.0)
== END ==
LOC: M SFHCADAM 14:18
PROVIDERS: ATTEND Physician Assistant
DX: K21.9 Gastro-esophageal reflux disease without esophagitis (principal)

== ENCOUNTER 2018-10-30 07:40 | Day surgery (SDC) | payer MEDICARE ==
[~2018-10-30] VITALS: Ht 162.6 cm; Wt 102.1 kg
[~2018-10-30 07:40] MED LIST changes: +ACET-683 PO; +AMBI5TAB PO; +B COTAB3 PO; +CALC1TAB63 PO; +NS 1,000 ML IV ONE; -OMEP-218; +OMEP-218 PO; -PRAV20TA2; +PRAV20TA2 PO; +PROBCAP14 PO; -TIZA4TAB4; +TIZA4TAB4 PO; +VITA-144 PO; +[UNRECOGNIZED DRUG - OTHER] PO
[2018-10-30] MEDS ORDERED: LIDOCAINE 2% INJ 100 MG/5 ML SDV (FOR ANES.) As Ordered ONE (08:43)
[2018-10-30] MEDS ORDERED: PROPOFOL 200 MG/20 ML VIAL As Ordered ONE (08:43)
--- NOTE | 2018-10-30 08:51 | ROOR ---
Patient Name: Marbin Watts Procedure Date: 10/30/2018 8:37 AM Date of : 1950 Age: 68 Room: [facility] Gender: Female Note Status: Finalized Procedure: Upper GI endoscopy Indications: Suspected esophageal reflux Providers: DO Tiffanie Cartagena MD: Tariq Betancourt MD Requesting Provider: Medicines: Propofol per Anesthesia Complications: No immediate complications. Procedure: Pre-Anesthesia Assessment: - Prior to the procedure, a History and Physical was performed, and patient medications and allergies were reviewed. The patient is competent. The risks and benefits of the procedure and the sedation options and risks were discussed with the patient. All questions were answered and informed consent was obtained. Patient identification and proposed procedure were verified by the physician, the nurse, the anesthesiologist and the snow technician in the endoscopy suite. Mental Status Examination: alert and oriented. Airway Examination: normal oropharyngeal airway and neck mobility. Respiratory Examination: clear to auscultation. CV Examination: normal. Prophylactic Antibiotics: The patient does not require prophylactic antibiotics. Prior Anticoagulants: The patient has taken no previous anticoagulant or antiplatelet agents. ASA Grade Assessment: II - A patient with mild systemic disease. After reviewing the risks and benefits, the patient was deemed in satisfactory condition to undergo the procedure. The anesthesia plan was to use monitored anesthesia care (MAC). Immediately prior to administration of medications, the patient was re-assessed for adequacy to receive sedatives. The heart rate, respiratory rate, oxygen saturations, blood pressure, adequacy of pulmonary ventilation, and response to care were monitored throughout the procedure. The physical status of the patient was re-assessed after the procedure. The Endoscope was introduced through the mouth, and advanced to the second part of duodenum. The upper GI endoscopy was accomplished without difficulty. The patient tolerated the procedure well. Findings: Localized moderate inflammation characterized by congestion (edema) and erythema was found in the prepyloric region of the stomach. Biopsies were taken with a cold forceps for Helicobacter pylori testing. Estimated blood loss was minimal. The exam was otherwise without abnormality. Impression: - Gastritis. Biopsied. - The examination was otherwise normal. Recommendation: - Patient has a contact number available for emergencies. The signs and symptoms of potential delayed complications were discussed with the patient. Return to normal activities tomorrow. Written discharge instructions were provided to the patient. - Return to my office as previously scheduled. Kip Burgess DO 10/30/2018 8:51:07 AM Electronically signed by Kip Burgess DO Number of Addenda: 0 Note Initiated On: 10/30/2018 8:37 AM Estimated Blood Loss: Estimated blood loss was minimal.
[2018-10-30 09:18] VITALS: BP 168/87
== END 2018-10-30 09:22 | disposition home or self-care (01) ==
LOC: M OPP 07:40
PROVIDERS: ATTEND Surgery
DX: K29.70 Gastritis, unspecified, without bleeding (principal); K21.9 Gastro-esophageal reflux disease without esophagitis; R05 Cough; Z79.899 Other long term (current) drug therapy; Z88.0 Allergy status to penicillin; Z88.2 Allergy status to sulfonamides; Z88.8 Allergy status to other drugs, medicaments and biological substances

== ENCOUNTER → 2019-02-21 | Outpatient (CLI) | payer MEDICARE ==
[~2019-02-21] MED LIST changes: -NS 1,000 ML IV ONE
[2019-02-21 11:15] LABS: HEMATOCRIT 45.4 % (36.0-47.0); HEMOGLOBIN 14.9 g/dl (12.0-15.5); MEAN CORPUSCULAR HEMOGLOBIN 29.9 pg (27.0-33.0); MEAN CORPUSCULAR HGB CONC 32.8 g/dl (32.0-36.5); MEAN CORPUSCULAR VOLUME 91.2 fl (80.0-96.0); PLATELET COUNT, AUTOMATED 198 10^3/uL (150-450); RED BLOOD COUNT 4.98 10^6/uL (4.00-5.40); WHITE BLOOD COUNT 3.8 10^3/uL (4.0-10.0)
[2019-02-21 11:25] LABS: ALBUMIN 3.7 GM/DL (3.2-5.2); ALT/SGPT 25 U/L (12-78); BILIRUBIN,TOTAL 0.9 MG/DL (0.2-1.0); BLOOD UREA NITROGEN 12 MG/DL (7-18); CARBON DIOXIDE LEVEL 26 MEQ/L (21-32); CHLORIDE LEVEL 109 MEQ/L (98-107); CHOLESTEROL LEVEL 165 MG/DL (<200); CHOLESTEROL RISK RATIO 3.055 (<5); FREE T4 1.04 NG/DL (0.76-1.46); GLOMERULAR FILTRATION RATE > 60.0 (>39); GLUCOSE, FASTING 103 MG/DL (70-100); HDL CHOLESTEROL 54 MG/DL (>40); LDL CHOLESTEROL 80 MG/DL (<100); NON-HDL-C 111 MG/DL; SODIUM LEVEL 144 MEQ/L (136-145); TOTAL PROTEIN 6.8 GM/DL (6.4-8.2); TRIGLYCERIDES LEVEL 153 MG/DL (<150)
[2019-02-21 11:45] LABS: CREATININE, URINE 55.8 MG/DL; MAU/CREAT RATIO 35.8 MCG/MG (0.0-30.0)
== END ==
LOC: M PLALAB 08:22
PROVIDERS: ATTEND Physician Assistant
DX: E78.2 Mixed hyperlipidemia (principal); I11.9 Hypertensive heart disease without heart failure; E74.9 Disorder of carbohydrate metabolism, unspecified

== ENCOUNTER → 2019-08-01 | Outpatient (CLI) | payer MEDICARE ==
--- NOTE | 2019-08-01 16:11 | REPMRS ---
Patient History The patient states she has not had a clinical breast exam in over a year. Family history of breast cancer at age 48 in sister. No Hormone Replacement Therapy 3D TOMOSYNTHESIS WAS PERFORMED. [facility] lifetime [facility] for [facility] cancer [facility] 8.4%. TIN Lund. Digital Woman Screen Mammo: August 01, 2019 - Exam #: [id number] Bilateral CC and MLO view(s) were taken. Technologist: Mayi lAy, Technologist Prior study comparison: July 29, 2018, bilateral digital woman screen mammo performed at [facility]. July 16, 2017, digital woman screen mammo performed at [facility]. FINDINGS: The breast tissue is heterogeneously dense. This may lower the sensitivity of mammography. There has been no change in the appearance of the mammogram from the prior studies. There is a moderate amount of residual fibroglandular tissue which is fairly symmetric. There is no interval development of dominant mass, areas of architectural distortion, or clustered microcalcification typical of malignancy. Assessment: BI-RADS/ACR category 1 mammogram. Negative Mammogram. Recommendation Routine screening mammogram in 1 year (for women over age 40). This mammogram was interpreted with the aid of an FDA-approved computer-aided dectection system. Electronically Signed By: Kip Khanna MD 08/01/19 [id number]
== END ==
LOC: M WHC 12:24
PROVIDERS: ATTEND Family Medicine
DX: Z12.31 Encounter for screening mammogram for malignant neoplasm of breast (principal)

== ENCOUNTER → 2020-01-14 | Outpatient (CLI) | payer MEDICARE ==
[~2020-01-14] MED LIST changes: -AMLO10TA5 PO; +AMLO1TAB24; +AMLO1TAB25 PO; -AMLO5TAB6
--- NOTE | 2020-01-14 16:56 | REP ---
INDICATION: KNEE PAIN COMPARISON: None. TECHNIQUE: AP, lateral, bilateral oblique and sunrise views. FINDINGS: There is mild medial and patellofemoral joint space narrowing. [place] view also demonstrates fraying along the anterior patellar margin consistent with calcific tendinopathy. No effusion. No acute fracture or dislocation. IMPRESSION: Mild/early moderate arthritic changes. <Electronically signed by Demetrius Leyva > 01/14/20 [id number]
== END ==
LOC: M WUC 14:17
PROVIDERS: ATTEND Physician Assistant
DX: M25.562 Pain in left knee (principal); M17.12 Unilateral primary osteoarthritis, left knee

== ENCOUNTER → 2020-02-24 | Outpatient (REF) | payer MEDICARE ==
[2020-02-24 10:28] LABS: HEMOGLOBIN A1c 5.6 %
[2020-02-24 10:43] LABS: ALBUMIN 3.5 GM/DL (3.2-5.2); ALT/SGPT 28 U/L (12-78); BILIRUBIN,TOTAL 0.8 MG/DL (0.2-1.0); BLOOD UREA NITROGEN 13 MG/DL (7-18); CALCIUM LEVEL 8.6 MG/DL (8.8-10.2); CARBON DIOXIDE LEVEL 28 MEQ/L (21-32); CHLORIDE LEVEL 107 MEQ/L (98-107); CHOLESTEROL LEVEL 183 MG/DL (<200); CREATININE FOR GFR 0.69 MG/DL (0.55-1.30); FREE T4 1.11 NG/DL (0.76-1.46); GLOMERULAR FILTRATION RATE > 60.0 (>39); GLUCOSE, FASTING 109 MG/DL (70-100); HDL CHOLESTEROL 57 MG/DL (>40); LDL CHOLESTEROL 99 MG/DL (<100); NON-HDL-C 126 MG/DL; POTASSIUM SERUM 4.1 MEQ/L (3.5-5.1); SODIUM LEVEL 144 MEQ/L (136-145); TOTAL PROTEIN 6.5 GM/DL (6.4-8.2); TRIGLYCERIDES LEVEL 136 MG/DL (<150)
== END ==
LOC: M PLALAB 08:09
PROVIDERS: ATTEND Family Medicine
DX: I11.9 Hypertensive heart disease without heart failure (principal); E78.2 Mixed hyperlipidemia; E04.2 Nontoxic multinodular goiter; E74.9 Disorder of carbohydrate metabolism, unspecified; Z79.899 Other long term (current) drug therapy

== ENCOUNTER 2020-03-09 17:41 | Emergency (ER) | payer MEDICARE ==
[~2020-03-09] VITALS: Ht 162.6 cm; Wt 102.3 kg
[2020-03-09] MEDS ORDERED: ACETAMINOPHEN 325 MG TAB PO ONE (19:00)
--- NOTE | 2020-03-09 20:11 | REP ---
INDICATION: right sided chest pain. COMPARISON: 08/15/2012 TECHNIQUE: Portable FINDINGS: The technique utilized in obtaining the radiograph has magnified the cardiac silhouette and attenuated the interstitial markings. There is no significant change in appearance of the lung jiang. Mild chronic fibrotic changes are suspected status quo. The pleural angles remain sharp. There is no significant change in appearance of the osseous structures. IMPRESSION: Mild cardiomegaly and fibrotic changes. There is no evidence of acute cardiopulmonary disease. <Electronically signed by Mark Garza > 03/09/202006
--- OUTSIDE RECORDS SUMMARY | 2020-03-09 20:29 | CCD ---
Author Author [facility] Organization [facility] Address Unknown Phone Unavailable Care Team Providers Care Client Development Manager Name Role Phone Joya Reyna Unavailable PROBLEMS Type Condition ICD9-CM Code [id number] Code Onset Dates Condition S tatus SNOMED Code Notes Problem Rosacea, unspecified L71.9 Active 935271488 Problem Menopausal and female climacteric states N95.1 Active 925881628 Problem Metabolic syndrome E88.81 Active 260991618 Problem Gastro-esophageal reflux disease with esophagitis K21.0 Active 101806351 Problem Disorder of carbohydrate metabolism, 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 Active 33624609 Problem Mixed hyperlipidemia E78.2 Active 652073486 Problem Nontoxic multinodular goiter E04.2 Active 362 43289 Problem Encounter for screening mammogram for breast cancer Z12.31 Active 365984431 Problem Vitamin D deficiency, unspecified E55.9 Active 21795784 Problem Hypertensive heart disease without heart failure I 11.9 Active 05665015 Problem Essential (primary) hypertension I10 Active 50083003 Problem Insomnia, unspecified G47.00 Active 259225853 Problem Gastroesophageal reflux disease without esophagitis K21.9 Active 637276442 Problem Other chronic pain G89.29 Active 17227552 Problem Encounter for immunization Z23 Active 70806 6002 Problem Adjustment disorder with depressed mood F43.21 Active 73130649 Problem Lumbar spondylosis M47.816 Active 403787490 Problem Osteopenia M85.80 Active 239332817 Problem Postmenopausal atrophic vaginitis N95.2 Active 15787125 Problem Medicare annual wellness visit, subsequent Z00.00 Active 136310240 Problem Tinnitus of left ear H93.12 Active 25081631822 06 Problem Situational depression F43.21 Active 75298110 Problem Unsteady gait R26.81 Active 707932706 ALLERGIES Allergen (clinical drug ingredient) Drug/Non Drug Allergy do cumented on EMR Reaction Allergy Type Onset Date Status HCTZ rosacea worsens Non Drug Allergy Act gómez sulfa Rash Non Drug Allergy Active pippa inhibitors cough Non Drug Allergy Acti ve Diovan jittery Non Drug Allergy 06/04/2019 Active spironolactone Diarrhea Non Drug Allergy Acti ve Lipitor Myalgias Non Drug Allergy Active lotensin cough Non Drug Allergy Active PCN Rash Non Drug Allergy Active ENCOUNTERS from 1950 to 2020-02-14 Encounter Location Date Provider Diagnosis [address] [place] [address] 08 Jan Joya Reyna Adjustment disorder with depressed mood F43.21 IMMUNIZATIONS Vaccine Route Administration Date Status Influenza (18 yrs & older) Flublok IM Intramuscular Jan 11, 2018 Administered Influenza (High Dose 65 & up) IM Intramuscular Dec 25, 2016 A dministered Influenza (High Dose 65 & up) IM Intramuscular Dec 09, 2015 A dministered Zoster 0.65mL (Zostavax) Unknown August 26, 2013 Adminis tered Pneumococcal Adult 0.5mL (Pneumovax 23) IM Intramuscular April 262015 Administered Pneumococcal 0.5mL (Prevnar 13) IM Intramuscular Apr 22, 2014 Administered TD Adult 0.5mL (Tetanus) Unknown Mar 29, 2014 Adminis tered Influenza (6mo & up) Fluzone Unknown Dec 27, 2014 Adm inistered Influenza (6mo & up) Fluzone Unknown Nov 26, 2013 Adm inistered SOCIAL HISTORY Tobacco Use: Social History Observation Description Date Details (start date - stop date) Never Smoker Sex Assigned At : Social History Observation Description Sex Assigned At Unknown Audit Question Answer Notes Total Score: 0 Interpretation: Alcohol Education Sexual Hx: Question Answer Notes Had sex in the last 12 months (vaginal, oral, or anal)? No Have you ever had an STD? No Drug and Alcohol Question Answer Notes Total Score: 0 Interpretation: No problems reported Alcohol Screening: Question Answer Notes Did you have a drink containing alcohol in the past year? No Points 0 Interpretation Negative BMI Care Goal Follow-Up Question Answer Notes Above Normal BMI Follow-Up Giving encouragement to exercise Tobacco Use: Question Answer Notes Are you a: never smoker never smoker REASON FOR REFERRAL No Information VITAL SIGNS No information MEDICATIONS Medication SIG (Take, Route, Frequency, Duration) Notes Start Da te End Date Status Pravastatin Sodium 20 MG 1 tablet Orally before bedtime for 90 Active Ambien 5 MG 1 tablet at bedtime Orally at bedtime as needed for sleep May, Active Furosemide 20 MG 1/2 tablet Orally once yvette y as needed for swelling in legs for 90 day(s) Feb, Active Vitamin D3 5000 UNIT 1 tablet Orally Once a day for 30 day(s) Dec, Active Tylenol 500 mg 1 tablet as needed Orally as needed for headache Active Blood Pressure Cuff 1 1 1 weekly for 30 day(s) Feb, 2 Active Coreg 25 mg 1 tablet Orally bid for 30 Active Probiotic - 1 cap Orally Daily Activ e Omeprazole 40 MG 1 capsule Orally Once a day for 90 Active Metronidazole 0.75 % 1 application Externally to face Once a day for 30 Days Jul, Active Fluticasone Propionate 50 MCG/ACT 1 spray in each nost ril Nasally Once a day for 30 day(s) Mar, Active Calcium 600 + D 600-400 MG-UNIT 1 tablet Orally twice a day Active Tizanidine HCl 4 MG 1 tablet as needed Orally at bedtime for 30 days Aug, Active AmLODIPine Besylate 5 MG 1 tablet Orally Once a day for 90 day(s ) Feb, Active Vitamin B Complex 100 mg 1 tablet Orally once a day Active PROCEDURES No Information RESULTS No Results REASON FOR VISIT follow up MEDICAL (GENERAL) HISTORY Type Description Date Medical History hypertension Medical History Esophageal reflux Medical History hyperlipidemia Medical History Prediabetes Medical History metabolic syndrome Medical History colonic polyps bx 10/01 Medical History Echo 12/2010 EF normal. Gra de I diastolic dysfunction. Mild LVH. Aortic sclerosis without stenosis. Medical History postmenopause Medical History thyroid nodule US 02/06--FNA benign X 2 02/28, 06/08; in-office US at endo/Dr Nelson Plummer 01/10 w/o sig change Medical History Vitamin D deficiency Medical History Lumbar degenerative disc dis ease with left LE radiculopathy - Injections pain clinic Medical History DEXA 07/11 nl, repeat in 5 yrs (Z score h igh, so ? reliabilty) Surgical History colonoscopy 2005 (adenomatous), 2009 was nl 2002, 2005, 2009, 2014 Surgical History d+c Surgical History lipoma back Surgical History ultrasound and biospy on neck 02/2012 Surgical History umbilical hernis repair 08/08 Surgical History FNA thyroid nodule--benign X 2 03/10, 05/27 3 Surgical History colonoscopy with Dr Burgess 12/02/14 Goals Section No Information Health Concerns No Information MEDICAL EQUIPMENT No Information MENTAL STATUS No Information FUNCTIONAL STATUS No Information ASSESSMENTS Encounter Date Diagnosis Assessment Notes Treatment Notes Treatm ent Clinical Notes Jan, Adjustment disorder with depressed mood (ICD-10 - F43.21) Marbin was seen for a follow up session. Reports symptoms have remained the same. Scheduled for a return session 03/02/2020 PLAN OF TREATMENT Medication Medication Name Sig Start Date Stop Date Omeprazole 40 MG 1 capsule Orally Once a day for 90 Treatment Notes Assessment Notes Clinical Notes Adjustment disorder with depressed mood Marbin was seen for a follow up session. Reports symptoms have remained the same. Scheduled for a return session 03/02/2020 Next Appt Details Provider Name:Joya Reyna, 2020-02 02:00:00 PM, [address] , [place], [address] Provider Name:Tariq Betancourt, 2020-02 01:45:00 PM, [address], [place], [address], Insurance Providers Payer Name Payer Address Payer Phone Insured Name Patient Relati onship to Insured Coverage Start Date Coverage End Date [facility] [address] [address] [facility] [address] [phone] MARBIN PERRY self
--- OUTSIDE RECORDS SUMMARY | 2020-03-09 20:29 | CCD | Continuity of Care Document ---
Author Author [facility] [place] Organization Unknown Address [address] [place] [address] [place] [address] Phone [phone] Care Team Providers Care Starbucks Barista Name Role Phone Tariq Betancourt MD [facility] [phone] Problems Description No Information Available Social History Type Date Description Comments Sex Unknown ETOH Use Denies alcohol use Tobacco Use Start: Unknown Patient has never smoked Smoking Status Reviewed: 01/14/20 Patient has never smoked Allergies, Adverse Reactions, Alerts Active Allergies Reaction Severity Comments Date Lipitor 04/15/2019 Penicillin 04/15/2019 Sulfa 04/15/2019 Ochoa Inhibitors 04/15/2019 Lotensin 04/15/2019 Hydrochlorothiazide 04/15/19 20 Diovan 04/15/2019 Spironolactone 04/15/2019 Medications Active Medications SIG Qnty Indications Ordering Provide r Date Coricidin HBP Cold & Flu Tablets Unknown Robitussin 12 Hour Cough Relief 30mg/5ML Suer 20 milliliters by mouth twice a day x 7-10 days Unknown Tylenol Extra Strength 500mg Tablets Unknown Ambien 5mg Tablets Unknown Vitamin B Complex Tablets Unknown Metrocream 0.75% Cream Unknown Omeprazole 20mg Tablets DR Unknown Calcium 600+D High Potency [id number] Tablets Unknown Norvasc 5mg Tablets 1 by mouth every day Unknown Coreg 25mg Tablets Unknown Probiotic Capsules Unknown Pravastatin Sodium 20mg Tablets Unknown Immunizations Description No Information Available Vital Signs Date Vital Result Comment 01/14/2020 2:07pm BP Systolic 147 mmHg BP Diastolic 81 mmHg Heart Rate 87 /min Respiratory Rate 16 /min O2 % BldC Oximetry 97 % Body Temperature 98.6 F Weight 225.00 lb Height 64 inches 5'4" BMI (Body Mass Index) 38.6 kg/m2 Pain Level 8 04/15/2019 8:19am BP Systolic 145 mmHg BP Diastolic 82 mmHg Heart Rate 74 /min Respiratory Rate 16 /min O2 % BldC Oximetry 94 % Body Temperature 98.4 F Weight 225.00 lb Height 64 inches 5'4" BMI (Body Mass Index) 38.6 kg/m2 Pain Level 1 Results Description No Information Available Procedures Description No Information Available Medical Devices Description No Information Available Encounters Type Date Location Provider Dx Diagnosis Office Visit 01/14/2020 3:25p Main Office [facility] Her M25 .562 Pain in left knee Assessments Date Code Description Provider 01/14/2020 M25.562 Pain in left knee [facility] Maldonado Plan of Treatment 01/14/2020 - [facility] Her* M25.562 Pain in left knee * All * Referral:* Mike Ba MD, Surgery,Orthopedic Functional Status Description No Information Available Mental Status Description No Information Available Referrals Refer to Dr Reason for Referral Status Appt Date Mike Ba MD left knee pain Created [address] [place] [address] [phone]
--- OUTSIDE RECORDS SUMMARY | 2020-03-09 20:29 | CCD | Continuity of Care Document ---
Author Author [facility] [place] Organization Unknown Address [address] [place] [address] [place] [address] Phone [phone] Care Team Providers Care Supervisor Acoustical Tile Carpenters Name Role Phone Tariq Betancourt MD [facility] [phone] Problems Description No Information Available Social History [...] Tablets DR Unknown Calcium 600+D High Potency [id number] Tablets Unknown Norvasc 5mg Tablets 1 by [...] Referral Status Appt Date Mike Ba MD Created [address] [place] [address] [phone]
--- OUTSIDE RECORDS SUMMARY | 2020-03-09 20:29 | CCD ---
Author Author [facility] Organization [facility] Address Unknown Phone Unavailable Care Team Providers Care Swinging Cut Off Saw Operator Name Role Phone Joya Reyna Unavailable PROBLEMS Type Condition ICD9-CM Code [id number] Code Onset Dates Condition S tatus SNOMED Code Notes Problem Rosacea, unspecified L71.9 Active 989171316 Problem Menopausal and female climacteric states N95.1 Active 348555277 Problem Metabolic syndrome E88.81 Active 023350237 Problem Gastro-esophageal reflux disease with esophagitis K21.0 Active 037622763 Problem Disorder of carbohydrate metabolism, 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 Active 95330827 Problem Mixed hyperlipidemia E78.2 Active 134717595 Problem Nontoxic multinodular goiter E04.2 Active 362 36352 Problem Encounter for screening mammogram for breast cancer Z12.31 Active 415067397 Problem Vitamin D deficiency, unspecified E55.9 Active 10129593 Problem Hypertensive heart disease without heart failure I 11.9 Active 66124083 Problem Essential (primary) hypertension I10 Active 63820879 Problem Insomnia, unspecified G47.00 Active 425904488 Problem Gastroesophageal reflux disease without esophagitis K21.9 Active 614879549 Problem Other chronic pain G89.29 Active 91950938 Problem Encounter for immunization Z23 Active 48611 6002 Problem Adjustment disorder with depressed mood F43.21 Active 58772315 Problem Lumbar spondylosis M47.816 Active 094163743 Problem Osteopenia M85.80 Active 652286493 Problem Postmenopausal atrophic vaginitis N95.2 Active 63191189 Problem Medicare annual wellness visit, subsequent Z00.00 Active 996505409 Problem Tinnitus of left ear H93.12 Active 76233664546 06 Problem Situational depression F43.21 Active 51758402 Problem Unsteady gait R26.81 Active 604387521 ALLERGIES Allergen (clinical drug ingredient) Drug/Non Drug [...] Drug Allergy Active ENCOUNTERS from 1950 to 2020-03-06 Encounter Location Date Provider Diagnosis [address] [place] [address] Feb Joya Reyna Adjustment disorder with depressed mood [...] tablet Orally before bedtime for 90 Active Fluticasone Propionate 50 MCG/ACT 1 spray in each nost ril Nasally Once a day for 30 day(s) Mar, Active AmLODIPine Besylate 5 MG 1 tablet Orally Once a day for 90 day(s ) Feb, Active Blood Pressure Cuff 1 1 1 weekly for 30 day(s) Feb, 2 Active Vitamin D3 5000 UNIT 1 tablet Orally Once a day for 30 day(s) Dec, Active Tizanidine HCl 4 MG 1 tablet as needed Orally at bedtime for 30 days Aug, Active Probiotic - 1 cap Orally Daily Activ e Ambien 5 MG 1 tablet at bedtime Orally at bedtime as needed for sleep May, Active Tylenol 500 mg 1 tablet as needed Orally as needed for headache Active Metronidazole 0.75 % 1 application Externally to face Once a day for 30 Days Jul, Active Omeprazole 40 MG 1 capsule Orally Once a day for 90 Active Calcium 600 + D 600-400 MG-UNIT 1 tablet Orally twice a day Active Coreg 25 mg 1 tablet Orally bid for 90 day(s) Active Furosemide 20 MG 1/2 tablet Orally once yvette y as needed for swelling in legs for 90 day(s) Feb, Active Vitamin B Complex 100 mg [...] X 2 02/28, 06/08; in-office US at [facility]/Dr Nelson Plummer 01/10 w/o sig change Medical [...] Notes Treatment Notes Treatm ent Clinical Notes Feb, Adjustment disorder with depressed mood (ICD-10 - F43.21) Marbin was seen for a follow up session, via zoom. Reports symptoms have remained the same. Scheduled for a return session 03/23/2020. PLAN OF TREATMENT Medication Medication Name Sig Start Date Stop Date AmLODIPine Besylate 5 MG 1 tablet Orally Once a day for 90 day(s ) Feb, Coreg 25 mg 1 tablet Orally bid for 90 day(s) Omeprazole 40 MG 1 capsule Orally Once a day for 90 Treatment Notes Assessment Notes Clinical Notes Adjustment disorder with depressed mood Marbin was seen for a follow up session, via zoom. Reports symptoms have remained the same. Scheduled for a return session 03/23/2020. Next Appt Details Provider Name:Tariq Betancourt, 2020-02 01:45:00 PM, [address] , [place], [address], Provider Name:Joya Reyna, 2020-02 02:00:00 PM, [address] , [place], [address] Insurance Providers Payer Name Payer Address Payer Phone Insured Name Patient Relati onship to Insured Coverage Start Date [facility]age End Date [facility] [employer] [address] [address] [facility] [address] MARBIN PERRY self
--- OUTSIDE RECORDS SUMMARY | 2020-03-09 20:29 | CCD ---
Author Author [facility] Organization [facility] Address Unknown Phone Unavailable Care Team Providers Care Ophthalmologist Retina Specialist Name Role Phone Joya Reyna Unavailable PROBLEMS Type Condition ICD9-CM Code [id number] Code Onset Dates Condition S tatus SNOMED Code Notes Problem Rosacea, unspecified L71.9 Active 220877621 Problem Menopausal and female climacteric states N95.1 Active 209336571 Problem Metabolic syndrome E88.81 Active 629661278 Problem Gastro-esophageal reflux disease with esophagitis K21.0 Active 932887401 Problem Disorder of carbohydrate metabolism, 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 Active 92756402 Problem Mixed hyperlipidemia E78.2 Active 257604097 Problem Nontoxic multinodular goiter E04.2 Active 362 13288 Problem Encounter for screening mammogram for breast cancer Z12.31 Active 339299783 Problem Vitamin D deficiency, unspecified E55.9 Active 89947281 Problem Hypertensive heart disease without heart failure I 11.9 Active 99732288 Problem Essential (primary) hypertension I10 Active 52962068 Problem Insomnia, unspecified G47.00 Active 811376616 Problem Gastroesophageal reflux disease without esophagitis K21.9 Active 420538669 Problem Other chronic pain G89.29 Active 07956262 Problem Encounter for immunization Z23 Active 54283 6002 Problem Adjustment disorder with depressed mood F43.21 Active 91269646 Problem Lumbar spondylosis M47.816 Active 965615761 Problem Osteopenia M85.80 Active 890440713 Problem Postmenopausal atrophic vaginitis N95.2 Active 35250409 Problem Medicare annual wellness visit, subsequent Z00.00 Active 990463871 Problem Tinnitus of left ear H93.12 Active 54387922305 06 Problem Situational depression F43.21 Active 13523198 Problem Unsteady gait R26.81 Active 842100140 ALLERGIES Allergen (clinical drug ingredient) Drug/Non Drug [...] Drug Allergy Active ENCOUNTERS from 1950 to 2020-01-09 Encounter Location Date Provider Diagnosis [address] [place] [address] 10 Dec Joya Reyna Adjustment disorder with depressed mood [...] MEDICATIONS Medication SIG (Take, Route, Frequency, Duration) Start Date En d Date Status Pravastatin Sodium 20 MG 1 tablet Orally before bedtime for 90 Active Ambien 5 MG 1 tablet at bedtime Orally at bedtime as needed for sleep May, Active Furosemide 20 MG 1/2 tablet Orally once yvette y as needed for swelling in legs for 90 day(s) Feb, Active Vitamin D3 5000 UNIT 1 tablet Orally Once a day for 30 day(s) 2017 Active Tylenol 500 mg 1 tablet as needed Orally as needed for headache Active Blood Pressure Cuff 1 1 1 weekly for 30 day(s) Feb, Active Coreg 25 mg 1 tablet Orally bid for 30 A ctive Probiotic - 1 cap Orally Daily Active Omeprazole 40 MG 1 capsule Orally [...] STATUS No Information ASSESSMENTS Encounter Date Diagnosis Notes Dec, Adjustment disorder with depressed mood (ICD-10 - F43.21) PLAN OF TREATMENT Medication Medication Name Sig Start Date Stop Date Omeprazole 40 MG 1 capsule Orally Once a day for 90 Treatment Notes Assessment Notes Clinical Notes Adjustment disorder with depressed mood Marbin was seen for a follow up session. Reports symptoms have remained the same Scheduled for a return session 02/03/2020. Next Appt Details Provider Name:Joya Reyna, 2020-01 02:00:00 PM, [address], [place], [address] Insurance Providers Payer Name Payer Address Payer Phone Insured Name Patient Relati onship to Insured Coverage Start Date Coverage End Date [facility] [address] [address] [facility] [address] [phone] MARBIN PERRY self
--- OUTSIDE RECORDS SUMMARY | 2020-03-09 20:29 | CCD | Continuity of Care Document ---
Author Author [facility] Organization Unknown Address [address] [place] [address], [facility] [address] [place] [address] Phone [phone] Care Team Providers Care Attraction Worker Name Role Phone Tariq Betancourt MD [facility] [phone] Problems Description No Information Available Social History Type Date Description Comments Sex Unknown ETOH Use Denies alcohol use Tobacco Use Start: Unknown Denies Smoking Allergies, Adverse Reactions, Alerts Active Allergies Reaction Severity Comments Date Lipitor 06/23/2016 Penicillin V 06/23/2016 sulfa drugs 06/23/2016 Ochoa Inhibitors 06/23/2016 Lotensin 06/23/2016 Hydrochlorothiazide 06/24/19 17 Diovan 06/23/2016 Spironolactone 06/23/2016 Medications Active Medications SIG Qnty Indications Ordering Provide r Date Tylenol 500mg Capsules Unknown Ambien 5mg Tablets 1 tab. every night at bedtime Unknown Vitamin B Complex Tablets 1 by mouth every day Unknown Metrocream 0.75% Cream Unknown Omeprazole 20mg Capsules DR i by mouth every day Unknown Calcium 600 + D [id number] Tab lets 1 by mouth every day Unknown Norvasc 5mg Tablets 1 by mouth every day Unknown Coreg 25mg Tablets 1 b y mouth twice a day Unknown Probiotic Capsules 1 by mouth every day Unknown Pravastatin Sodium 20mg Tablets 1 tab by mouth every other day Unknown Immunizations Description No Information Available Vital Signs Date Vital Result Comment 02/10/2020 2:24pm Body Temperature 96.9 F Height 62.75 inches 5'2.75" Weight 223.50 lb BMI (Body Mass Index) 39.9 kg/m2 06/23/2016 1:49pm Body Temperature 98.2 F Height 63.5 inches 5'3.50" Weight 219.00 lb BMI (Body Mass Index) 38.2 kg/m2 Results Description No Information Available Procedures Description No Information Available Medical Devices Description No Information Available Encounters Description No Information Available Assessments Date Code Description Provider 02/10/2020 M17.12 Unilateral primary osteoarthriti s, left knee Amena Alvarado MD Plan of Treatment 02/10/2020 - Amena Alvarado MD* M17.12 Unilateral primary osteoarthritis, left knee* Follow up:* f/u prn left knee Functional Status Description No Information Available Mental Status Description No Information Available Referrals Description No Information Available
--- OUTSIDE RECORDS SUMMARY | 2020-03-09 20:29 | CCD ---
Author Author [facility] Organization [facility] Address Unknown Phone Unavailable Care Team Providers Care Measurement And Verification Engineer Name Role Phone Tariq Betancourt Unavailable PROBLEMS Type Condition ICD9-CM Code PIB36-DQ Code Onset Dates Condition S tatus SNOMED Code Notes Problem Rosacea, unspecified L71.9 Active 215376965 Problem Menopausal and female climacteric states N95.1 Active 689218670 Problem Metabolic syndrome E88.81 Active 139244025 Problem Gastro-esophageal reflux disease with esophagitis K21.0 Active 198699842 Problem Disorder of carbohydrate metabolism, 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 Active 87607339 Problem Mixed hyperlipidemia E78.2 Active 005672119 Problem Nontoxic multinodular goiter E04.2 Active 362 40294 Problem Encounter for screening mammogram for breast cancer Z12.31 Active 960023115 Problem Vitamin D deficiency, unspecified E55.9 Active 62798072 Problem Hypertensive heart disease without heart failure I 11.9 Active 41739598 Problem Essential (primary) hypertension I10 Active 24714122 Problem Insomnia, unspecified G47.00 Active 345541536 Problem Gastroesophageal reflux disease without esophagitis K21.9 Active 604393024 Problem Other chronic pain G89.29 Active 26757730 Problem Encounter for immunization Z23 Active 44481 6002 Problem Adjustment disorder with depressed mood F43.21 Active 64262206 Problem Lumbar spondylosis M47.816 Active 687602026 Problem Osteopenia M85.80 Active 468906948 Problem Postmenopausal atrophic vaginitis N95.2 Active 96824676 Problem Medicare annual wellness visit, subsequent Z00.00 Active 148707257 Problem Tinnitus of left ear H93.12 Active 57854706775 06 Problem Situational depression F43.21 Active 70799698 Problem Unsteady gait R26.81 Active 967527161 ALLERGIES Allergen (clinical drug ingredient) Drug/Non Drug [...] Drug Allergy Active ENCOUNTERS from 1950 to 2020-03-03 Encounter Location Date Provider Diagnosis [facility] [address] [place] [address] Feb, Camron Betancourt Hypertensive heart disease without heart failure I11.9 IMMUNIZATIONS Vaccine Route Administration Date Status Influenza [...] Information RESULTS No Results REASON FOR VISIT carvedilol, amlodipine MEDICAL (GENERAL) HISTORY Type Description Date Medical [...] Treatment Notes Treatm ent Clinical Notes Feb, Hypertensive heart disease without heart failure (ICD-10 - I11.9) PLAN OF TREATMENT Medication Medication Name Sig Start Date Stop Date AmLODIPine Besylate 5 MG 1 tablet Orally Once a day for 90 day(s ) Feb, Coreg 25 mg 1 tablet Orally bid for 90 day(s) Omeprazole 40 MG 1 capsule Orally Once a day for 90 Next Appt Details Provider Name:Tariq Betancourt, 2020-02 01:45:00 PM, [address] , [place], [address], Provider Name:Joya Reyna, 2020-02 02:00:00 PM, [address], [place], [address] Insurance Providers Payer Name Payer Address Payer Phone Insured Name Patient Relati onship to Insured Coverage Start Date Coverage End Date [facility] [address] [address] [facility] [address] [phone] REE PERRY self
--- OUTSIDE RECORDS SUMMARY | 2020-03-09 20:29 | CCD | Continuity of Care Document ---
Author Author Marbin ALVARADO MD Organization Unknown Address [address] [place] [address], [facility] [address] [place] [address] Phone [phone] Care Team Providers Care Teletype Adjuster Name Role Phone Tariq Betancourt MD AUTM [phone] Problems Description No Information Available Social History Type Date Description Comments Sex Unknown ETOH Use Denies alcohol use Tobacco Use Start: Unknown Denies Smoking Smoking Status Reviewed: 02/10/20 Denies Smoking Allergies, Adverse Reactions, Alerts Active [...] every day Unknown Calcium 600 + D [id number] Tab lets 1 by mouth every day [...] kg/m2 Results Description No Information Available Procedures Date Code Description Status 02/10/2020 Inject/Drain Joint/Bursa Major C ompleted Medical Devices Description No Information Available Encounters Type Date Location Provider Dx Diagnosis Office Visit 02/10/2020 2:15p [place] Amena Alvarado MD M1 7.12 Unilateral primary osteoarthritis, left knee Assessments Date Code Description Provider 02/10/2020 M17.12 Unilateral primary osteoarthriti s, left knee Amena Alvarado MD Plan of Treatment 02/10/2020 - Amena Alvarado MD* M17.12 Unilateral primary osteoarthritis, left knee* Follow up:* f/u prn left knee Functional Status Description No Information Available Mental Status Description No Information Available Referrals Description No Information Available
--- OUTSIDE RECORDS SUMMARY | 2020-03-09 20:30 | CCD ---
Author Author [facility] Organization [facility] Address Unknown Phone Unavailable Care Team Providers Care Multi Site Leasing Consultant Name Role Phone Joya Reyna Unavailable PROBLEMS Type Condition ICD9-CM Code CPT17-RA Code Onset Dates Condition S tatus SNOMED Code Notes Problem Rosacea, unspecified L71.9 Active 607011424 Problem Menopausal and female climacteric states N95.1 Active 520890211 Problem Metabolic syndrome E88.81 Active 563021773 Problem Gastro-esophageal reflux disease with esophagitis K21.0 Active 488519133 Problem Disorder of carbohydrate metabolism, 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 Active 08849234 Problem Mixed hyperlipidemia E78.2 Active 348548677 Problem Nontoxic multinodular goiter E04.2 Active 362 76007 Problem Encounter for screening mammogram for breast cancer Z12.31 Active 659347125 Problem Vitamin D deficiency, unspecified E55.9 Active 95721354 Problem Hypertensive heart disease without heart failure I 11.9 Active 45193596 Problem Essential (primary) hypertension I10 Active 56727257 Problem Insomnia, unspecified G47.00 Active 989235573 Problem Gastroesophageal reflux disease without esophagitis K21.9 Active 129932848 Problem Other chronic pain G89.29 Active 54900804 Problem Encounter for immunization Z23 Active 46999 6002 Problem Adjustment disorder with depressed mood F43.21 Active 67214211 Problem Lumbar spondylosis M47.816 Active 517258972 Problem Osteopenia M85.80 Active 845424773 Problem Postmenopausal atrophic vaginitis N95.2 Active 94012719 Problem Medicare annual wellness visit, subsequent Z00.00 Active 294636848 Problem Tinnitus of left ear H93.12 Active 62550757319 06 Problem Situational depression F43.21 Active 56396089 Problem Unsteady gait R26.81 Active 412924342 ALLERGIES Allergen (clinical drug ingredient) Drug/Non Drug [...] Drug Allergy Active ENCOUNTERS from 1950 to 2019-12-12 Encounter Location Date Provider Diagnosis [address] [place] [address] 13 Nov Joya Reyna Adjustment disorder with depressed mood [...] bedtime as needed for sleep May, Active Omeprazole 40 MG 1 capsule Orally Once a day for 90 Active Vitamin D3 5000 UNIT 1 tablet Orally Once a day for 30 day(s) 2017 Active Tylenol 500 mg 1 tablet as needed Orally as needed for headache Active Blood Pressure Cuff 1 1 1 weekly for 30 day(s) Feb, Active Coreg 25 mg 1 tablet Orally bid for 30 A ctive Probiotic - 1 cap Orally Daily Active Furosemide 20 MG 1/2 tablet Orally once yvette y as needed for swelling in legs for 90 day(s) Feb, Active Metronidazole 0.75 % 1 application Externally [...] No Information ASSESSMENTS Encounter Date Diagnosis Notes Nov, Adjustment disorder with depressed mood (ICD-10 - F43.21) PLAN OF TREATMENT Treatment Notes Assessment Notes Clinical Notes Adjustment disorder with depressed mood Marbin was seen for a follow up session. Reports symptoms have improved. Scheduled for a return session 01/06/2020. Next Appt Details Provider Name:Joya Reyna 2019-12 02:00:00 PM, [address] , [place], [address] Insurance Providers Payer Name Payer Address Payer Phone Insured Name Patient Relati onship to Insured Coverage Start Date Coverage End Date [facility] [address] [address] [facility] [id number] [phone] MARBIN PERRY self
--- OUTSIDE RECORDS SUMMARY | 2020-03-09 20:30 | CCD ---
Author Author [facility] Organization [facility] Address Unknown Phone Unavailable Care Team Providers Care Area Representative Name Role Phone JAYNE ROJO Unavailable Unavailable Lon Townsend Unavailable Unavailable Lon Townsend Unavailable Unavailable Lon Townsend Unavailable Unavailable Lon Townsend Unavailable Unavailable Lon Townsend Unavailable Unavailable TownsendLon steiner Unavailable Unavailable Lon Townsend Unavailable Unavailable Lon Townsend Unavailable Unavailable Lon Townsend Unavailable Unavailable Lon Townsend Unavailable Unavailable Lon Townsend Unavailable Unavailable Lon Townsend Unavailable Unavailable Lon Townsend Unavailable Unavailable TownsendLon steiner Unavailable Unavailable Townsend, Lon Demetrius PA Unavailable Unavailable TownsendFabiow Demetrius PA Unavailable Unavailable TownsendLon PA Unavailable Unavailable TownsendFabiow Demetrius PA Unavailable Unavailable Townsend, Lon Demetrius PA Unavailable Unavailable Townsend, Lon Demetrius PA Unavailable Unavailable Townsend, Lon Demetrius PA Unavailable Unavailable Townsend, Lon Demetrius PA Unavailable Unavailable Townsend, Lon Demetrius PA Unavailable Unavailable TownsendFabiow Demetrius PA Unavailable Unavailable Townsend, Lon Demetrius PA Unavailable Unavailable Kristian, Lon Mark PA Unavailable Unavailable VaneenshonaamMehreen MD Unavailable Unavailable VaneenenaamMehreen MD Unavailable Unavailable VaneenenaamMehreen MD Unavailable Unavailable VaneenMehreen suarez MD Unavailable Unavailable VaneenshonaamMehreen MD Unavailable Unavailable VaneenshonaamMehreen MD Unavailable Unavailable VaneenshonaamMehreen MD Unavailable Unavailable VanMehreen booth MD Unavailable Unavailable VanMehreen booth MD Unavailable Unavailable VanMehreen booth MD Unavailable Unavailable VanMehreen booth MD Unavailable Unavailable VandesiraeamMehreen MD Unavailable Unavailable VandesiraeamMehreen MD Unavailable Unavailable VanMehreen booth MD Unavailable Unavailable VaneenshonaamMehreen MD Unavailable Unavailable VanMehreen booth MD Unavailable Unavailable VanMehreen booth MD Unavailable Unavailable Mehreen Amador MD Unavailable Unavailable VanMehreen booth MD Unavailable Unavailable Mehreen Amador MD Unavailable Unavailable VanMehreen booth MD Unavailable Unavailable VanMehreen booth MD Unavailable Unavailable Mehreen Amador MD Unavailable Unavailable VanMehreen booth MD Unavailable Unavailable Mehreen Amador MD Unavailable Unavailable VanMehreen booth MD Unavailable Unavailable VanMehreen booth MD Unavailable Unavailable VanMehreen booth MD Unavailable Unavailable Mehreen Amador MD Unavailable Unavailable Mehreen Amador MD Unavailable Unavailable Mehreen Amador MD Unavailable Unavailable Mehreen Amador MD Unavailable Unavailable Mehreen Amador MD Unavailable Unavailable Mehreen Amador MD Unavailable Unavailable VanMehreen booth MD Unavailable Unavailable Mehreen Amador MD Unavailable Unavailable Mehreen Amador MD Unavailable Unavailable Mehreen Amador MD Unavailable Unavailable VandesiraeamMehreen MD Unavailable Unavailable VandesiraeamMehreen MD Unavailable Unavailable Vaneenenaam, Mehreen Rutledge MD Unavailable Unavailable Vaneenenaam, Mehreen Rutledge MD Unavailable Unavailable Vaneenenaam, Mehreen Rutledge MD Unavailable Unavailable Vaneenenaam, Mehreen Rutledge MD Unavailable Unavailable LETTIERE, A KOMAL PA Unavailable Unavailable LETTIERE, A KOMAL PA Unavailable Unavailable LETTIERE, A KOMAL PA Unavailable Unavailable LETTIERE, A KOMAL PA Unavailable Unavailable LETTIERE, A KOMAL PA Unavailable Unavailable LETTIERE, A KOMAL PA Unavailable Unavailable LETTIERE, A KOMAL PA Unavailable Unavailable LETTIERE, A KOMAL PA Unavailable Unavailable LETTIERE, A KOMAL PA Unavailable Unavailable LETTIERE, A KOMAL PA Unavailable Unavailable LETTIERE, A KOMAL PA Unavailable Unavailable LETTIERE, A KOMAL PA Unavailable Unavailable LETTIERE, A KOMAL PA Unavailable Unavailable LETTIERE, A KOMAL PA Unavailable Unavailable LETTIERE, A KOMAL PA Unavailable Unavailable LETTIERE, A KOMAL PA Unavailable Unavailable LETTIERE, A KOMAL PA Unavailable Unavailable LETTIERE, A KOMAL PA Unavailable Unavailable LETTIERE, A KOMAL PA Unavailable Unavailable LETTIERE, A KOMAL PA Unavailable Unavailable LETTIERE, A KOMAL PA Unavailable Unavailable LETTIERE, A KOMAL PA Unavailable Unavailable LETTIERE, A KOMAL PA Unavailable Unavailable LETTIERE, A KOMAL PA Unavailable Unavailable LETTIERE, A KOMAL PA Unavailable Unavailable LETTIERE, A KOMAL PA Unavailable Unavailable LETTIERE, A KOMAL PA Unavailable Unavailable LETTIERE, A KOMAL PA Unavailable Unavailable LETTIERE, A KOMAL PA Unavailable Unavailable Re-disclosure Warning The records that you are about to access may contain information from federally-assisted alcohol or drug abuse programs. If such information is present, then the following federally mandated warning applies: This information has been disclosed to you from records protected by federal confidentiality rules (42 CFR part 2). The federal rules prohibit you from making any further disclosure of this information unless further disclosure is expressly permitted by the written consent of the person to whom it pertains or as otherwise permitted by 42 CFR part 2. A general authorization for the release of medical or other information is NOT sufficient for this purpose. The Federal rules restrict any use of the information to criminally investigate or prosecute any alcohol or drug abuse patient.The records that you are about to access may contain highly sensitive health information, the redisclosure of which is protected by Article 27-F of the [place] State Public Health law. If you continue you may have access to information: Regarding HIV / AIDS; Provided by facilities licensed or operated by the [facility] Office of Mental Health; or Provided by the [facility] Office for People With Developmental Disabilities. If such information is present, then the following [facility] mandated warning applies: This information has been disclosed to you from confidential records which are protected by state law. State law prohibits you from making any further disclosure of this information without the specific written consent of the person to whom it pertains, or as otherwise permitted by law. Any unauthorized further disclosure in violation of state law may result in a fine or senior care sentence or both. A general authorization for the release of medical or other information is NOT sufficient authorization for further disc losure. Allergies and Adverse Reactions Type Description Substance Reaction Status Data Source(s ) Food allergy PENICILLIN PENICILLIN [facility] Food allergy LATEX LATEX [facility] Propensity to adverse reactions Diovan Propensity to adverse reactions jittery Active eCW1 ([facility]) Propensity to adverse reactions Diovan Propensity to adverse reactions jittery Active eCW1 ([facility]) Propensity to adverse reactions Diovan Propensity to adverse reactions jittery Active eCW1 ([facility]) Propensity to adverse reactions Diovan Propensity to adverse reactions jittery Active eCW1 ([facility]) Propensity to adverse reactions Diovan Propensity to adverse reactions jittery Active eCW1 ([facility]) Propensity to adverse reactions Diovan Propensity to adverse reactions jittery Active eCW1 ([facility]) Propensity to adverse reactions Diovan Propensity to adverse reactions jittery Active eCW1 ([facility]) Propensity to adverse reactions Diovan Propensity to adverse reactions jittery Active eCW1 ([facility]) spironolactone spironolactone Spironolactone 50 MG Oral Tablet Diarrh ea Active eCW1 ([facility]) pippa inhibitors pippa inhibitors pippa inhibitors cough Active eC W1 ([facility]) lotensin lotensin Benazepril hydrochloride 40 MG Oral Table t [Lotensin] cough Active eCW1 ([facility]) HCTZ HCTZ HCTZ rosacea worsens Active eCW1 ([facility]) Diovan Diovan valsartan 40 MG Oral Tablet [Diovan] jittery Active eCW1 ([facility]) Lipitor Lipitor atorvastatin 80 MG Oral Tablet [Lipitor] Myalgi as Active eCW1 ([facility]) PCN PCN PCN Rash Active eCW1 ([facility]) sulfa sulfa sulfa Rash Active eCW1 ([facility]) spironolactone spironolactone Spironolactone 50 MG Oral Tablet Diarrh ea Active eCW1 ([facility]) pippa inhibitors pippa inhibitors pippa inhibitors cough Active eC W1 ([facility]) lotensin lotensin Benazepril hydrochloride 40 MG Oral Table t [Lotensin] cough Active eCW1 ([facility]) HCTZ HCTZ HCTZ rosacea worsens Active eCW1 ([facility]) Diovan Diovan valsartan 40 MG Oral Tablet [Diovan] jittery Active eCW1 ([facility]) Lipitor Lipitor atorvastatin 40 MG Oral Tablet [Lipitor] Myalgi as Active eCW1 ([facility]) PCN PCN PCN Rash Active eCW1 ([facility]) sulfa sulfa sulfa Rash Active eCW1 ([facility]) Family History Family Member Name Family Member Gender Family Member Status Date o f Status Description Data Source(s) Unknown Unknown Problem MEDENT ([facility]) Unknown Unknown Encounters Encounter Providers Location Date Indications Data Source(s ) ([facility]) [facility] Scheduled Visit [address] [place] [address] 03/02/2020 12:00:00 AM EST eCW1 ([facility]) Unknown [address] [facility] [address] 03/02/2020 12:00:00 AM EST eCW1 ([facility]) OFFICE OUTPATIENT NEW 30 MINUTES Attender: Mehreen Mcmahon am, MD Physical Therapy 02/10/2020 01:15:00 PM EST MEDENT ([facility]) ([facility]) [facility] Scheduled Visit [address] [place] [address] 02/03/2020 12:00:00 AM EST eCW1 ([facility]) Outpatient Attender: KOMAL santillan 01/14/2020 02:25:00 PM EST MEDENT ([facility]) ([facility]) [facility] Scheduled Visit [address] [place] [address] 01/06/2020 12:00:00 AM EST eCW1 ([facility]) Outpatient Attender: [facility] 12/30/2019 11:56:01 AM EST [facility] Outpatient Attender: [facility] 12/27/2019 12:00:11 AM EDT [facility] Outpatient Attender: [facility] 12/26/2019 04:20:02 PM EDT [facility] ([facility]) [facility] Scheduled Visit [address] [place] [address] 12/09/2019 12:00:00 AM EDT eCW1 ([facility]) ([facility]) [facility] Scheduled Visit [address] [place] [address] 09/15/2019 12:00:00 AM EDT eCW1 ([facility]) Outpatient [address] [facility] [place] [address] 09/12/2019 12:00:00 AM EDT eCW1 ([facility]) [facility] [address] [facility] [place] [address] 09/03/2019 12:00:00 AM EDT eCW1 ([facility]) Outpatient Attender: [facility] 08/19/2019 03:57:02 PM EDT [facility] Outpatient Attender: [facility] 08/19/2019 03:16:01 PM EDT [facility] Outpatient Attender: [facility] 08/19/2019 02:47:00 PM EDT [facility] 08/19/2019 02:46:01 PM EDT [facility] Unknown [address] [facility] [place] [address] 08/11/2019 12:00:00 AM EDT eCW1 ([facility]) [facility] [address] [place] [address] 08/11/2019 12:00:00 AM EDT eCW1 ([facility]) [facility] [address] [place] [address] 07/28/2019 12:00:00 AM EDT eCW1 ([facility]) [facility] [address] [place] [address] 07/07/2019 12:00:00 AM EDT eCW1 ([facility]) [facility] [address] [place] [address] 06/23/2019 12:00:00 AM EDT eCW1 ([facility]) [facility] [address] [place] [address] 06/11/2019 12:00:00 AM EDT eCW1 ([facility]) [facility] [address] [place] [address] [place] [address] 06/06/2019 12:00:00 AM EDT eCW1 ([facility]) [facility] [address] [facility] [place] [address] 06/04/2019 12:00:00 AM EDT eCW1 ([facility]) [facility] [address] [place] [address] 06/03/2019 12:00:00 AM EDT eCW1 ([facility]) [facility] [address] [facility] [place] [address] 06/02/2019 12:00:00 AM EDT eCW1 ([facility]) [facility] [place] [address] 05/15/2019 12:00:00 AM EDT eCW1 ([facility]) [facility] [address] [place] [phone] 04/22/2019 12:00:00 AM EST eCW1 ([facility]) Outpatient Attender: Demetrius Ferreira 04/15/2019 07:05:00 AM EST MEDENT ([facility]) [address] [address] 04/01/2019 12:00:00 AM EST eCW1 ([facility]) [address] [address] 03/11/2019 12:00:00 AM EST eCW1 ([facility]) [address] [address] 03/11/2019 12:00:00 AM EST eCW1 ([facility]) [address] [address] 02/12/2019 12:00:00 AM EST eCW1 ([facility]) [address] [address] 01/13/2019 12:00:00 AM EST eCW1 ([facility]) Medications Medication Brand Name Start Date Product Form Dose Route Admi nistrative Instructions Pharmacy Instructions Status Indications Reaction Description Data Source(s) Metronidazole 7.5 MG/ML Topical Cream Metronidazole 0.75 % M etronidazole 0.75 % 08/11/2019 12:00:00 AM EDT 1.0 {application} act gómez Metronidazole 0.75 % eCW1 ([facility]) Metronidazole 7.5 MG/ML Topical Cream Metronidazole 0.75 % M etronidazole 0.75 % 08/11/2019 12:00:00 AM EDT 1.0 {application} act gómez Metronidazole 0.75 % eCW1 ([facility]) Metronidazole 7.5 MG/ML Topical Cream Metronidazole 0.75 % M etronidazole 0.75 % 08/11/2019 12:00:00 AM EDT 1.0 {application} act gómez Metronidazole 0.75 % eCW1 ([facility]) Metronidazole 7.5 MG/ML Topical Cream Metronidazole 0.75 % M etronidazole 0.75 % 08/11/2019 12:00:00 AM EDT 1.0 {application} act gómez Metronidazole 0.75 % eCW1 ([facility]) Metronidazole 7.5 MG/ML Topical Cream Metronidazole 0.75 % M etronidazole 0.75 % 08/11/2019 12:00:00 AM EDT 1.0 {application} act gómez Metronidazole 0.75 % eCW1 ([facility]) Metronidazole 7.5 MG/ML Topical Cream Metronidazole 0.75 % M etronidazole 0.75 % 08/11/2019 12:00:00 AM EDT 1.0 {application} act gómez Metronidazole 0.75 % eCW1 ([facility]) Metronidazole 7.5 MG/ML Topical Cream Metronidazole 0.75 % M etronidazole 0.75 % 08/11/2019 12:00:00 AM EDT 1.0 {application} act gómez Metronidazole 0.75 % eCW1 ([facility]) Metronidazole 7.5 MG/ML Topical Cream Metronidazole 0.75 % M etronidazole 0.75 % 08/11/2019 12:00:00 AM EDT 1.0 {application} act gómez Metronidazole 0.75 % eCW1 ([facility]) Clarithromycin 500 MG Oral Tablet [Biaxin] Biaxin 04/15/2019 12:00:00 AM EST ORAL active MEDENT ([facility], [facility]) Furosemide 20 MG Oral Tablet Furosemide 20 MG 03/11/2019 12:00:[address] active 1/2 tablet eCW1 ([facility]) Furosemide 20 MG Oral Tablet Furosemide 20 MG 03/11/2019 12:00:[address] active Furosemide 20 MG eCW1 ([facility]) Amlodipine 5 MG Oral Tablet AmLODIPine Besylate 5 MG AmLODIP ine Besylate 5 MG 03/11/2019 12:00:00 AM EST 1.0 {tablet} active AmLODIPine Besylate 5 MG eCW1 ([facility]) Amlodipine 5 MG Oral Tablet AmLODIPine Besylate 5 MG AmLODIP ine Besylate 5 MG 03/11/2019 12:00:00 AM EST 1.0 {tablet} active AmLODIPine Besylate 5 MG eCW1 ([facility]) Furosemide 20 MG Oral Tablet Furosemide 20 MG 03/11/2019 12:00:[address] active Furosemide 20 MG eCW1 ([facility]) Furosemide 20 MG Oral Tablet Furosemide 20 MG 03/11/2019 12:00:[address] active Furosemide 20 MG eCW1 ([facility]) Furosemide 20 MG Oral Tablet Furosemide 20 MG 03/11/2019 12:00:[address] active 1/2 tablet eCW1 ([facility]) Furosemide 20 MG Oral Tablet Furosemide 20 MG 03/11/2019 12:00:[address] active Furosemide 20 MG eCW1 ([facility]) Amlodipine 5 MG Oral Tablet AmLODIPine Besylate 5 MG AmLODIP ine Besylate 5 MG 03/11/2019 12:00:00 AM EST 1.0 {tablet} active AmLODIPine Besylate 5 MG eCW1 ([facility]) Amlodipine 5 MG Oral Tablet AmLODIPine Besylate 5 MG AmLODIP ine Besylate 5 MG 03/11/2019 12:00:00 AM EST active 1 tablet eCW1 ([facility]) Furosemide 20 MG Oral Tablet Furosemide 20 MG 03/11/2019 12:00:[address] active Furosemide 20 MG eCW1 ([facility]) Amlodipine 5 MG Oral Tablet AmLODIPine Besylate 5 MG AmLODIP ine Besylate 5 MG 03/11/2019 12:00:00 AM EST 1.0 {tablet} active AmLODIPine Besylate 5 MG eCW1 ([facility]) Furosemide 20 MG Oral Tablet Furosemide 20 MG 03/11/2019 12:00:[address] active Furosemide 20 MG eCW1 ([facility]) Amlodipine 5 MG Oral Tablet AmLODIPine Besylate 5 MG AmLODIP ine Besylate 5 MG 03/11/2019 12:00:00 AM EST 1.0 {tablet} active AmLODIPine Besylate 5 MG eCW1 ([facility]) Amlodipine 5 MG Oral Tablet AmLODIPine Besylate 5 MG AmLODIP ine Besylate 5 MG 03/11/2019 12:00:00 AM EST 1.0 {tablet} active AmLODIPine Besylate 5 MG eCW1 ([facility]) Furosemide 20 MG Oral Tablet Furosemide 20 MG 03/11/2019 12:00:[address] active 1/2 tablet eCW1 ([facility]) Amlodipine 5 MG Oral Tablet AmLODIPine Besylate 5 MG AmLODIP ine Besylate 5 MG 03/11/2019 12:00:00 AM EST active 1 tablet eCW1 ([facility]) Amlodipine 5 MG Oral Tablet AmLODIPine Besylate 5 MG AmLODIP ine Besylate 5 MG 03/11/2019 12:00:00 AM EST 1.0 {tablet} active AmLODIPine Besylate 5 MG eCW1 ([facility]) Furosemide 20 MG Oral Tablet Furosemide 20 MG 03/11/2019 12:00:[address] active Furosemide 20 MG eCW1 ([facility]) Amlodipine 5 MG Oral Tablet AmLODIPine Besylate 5 MG AmLODIP ine Besylate 5 MG 03/11/2019 12:00:00 AM EST 1.0 {tablet} active AmLODIPine Besylate 5 MG eCW1 ([facility]) Amlodipine 5 MG Oral Tablet AmLODIPine Besylate 5 MG AmLODIP ine Besylate 5 MG 03/11/2019 12:00:00 AM EST active 1 tablet eCW1 ([facility]) Furosemide 20 MG Oral Tablet Furosemide 20 MG 03/11/2019 12:00:[address] active Furosemide 20 MG eCW1 ([facility]) Insurance Providers Payer name Policy type / Coverage type Policy ID Covered green party ID Covered green party's relationship to [place] Policy [place] Plan Information WELLCARE [id number] SP [id number] WELLCARE O [id number] S [id number] Wellcare P UNAVAILABLE S UNAVAILA BLE ANSI-Medicare Part B [id number] ANSI-Medicare Part B [id number] ANSI-Health Maintenance Organization ( O) [id number] ANSI-Medicare Part B [id number] ANSI-Medicare Part B [id number] [facility]-Health Maintenance Organization ( O) [id number] ANSI-Medicare Part B [id number] ANSI-Medicare Part B [id number] [facility]-Health Maintenance Organization ( O) [id number] [facility]-Health Maintenance Organization ( O) [id number] ANSI-Medicare Part B [id number] ANSI-Medicare Part B [id number] ANSI-Medicare Part B [id number] ANSI-Medicare Part B [id number] ANSI-Health Maintenance Organization ( O) [id number] ANSI-Health Maintenance Organization ( O) [id number] ANSI-Medicare Part B [id number] ANSI-Medicare Part B [id number] MEDICARE COMPLETE [id number] SP [id number] ANSI-Medicare Part B [id number] ANSI-Medicare Part B [id number] ANSI-Medicare Part B [id number] ANSI-Medicare Part B [id number] ANSI-Medicare Part B [id number] ANSI-Medicare Part B [id number] MEDICARE COMPLETE [id number] SP [id number] BS [place] Medigap Part B [id number] Self [id number] [employer] ([facility]) Commercial [id number] Self [id number] H[facility]ense Misohoni ([facility]) Commercial [id number] Self [id number] [employer] ([facility]) Commercial [id number] Self [id number] MEDICARE COMPLETE-[facility] O [id number] S [id number] [employer] ([facility]) Commercial [id number] Self [id number] MEDICARE COMPLETE [id number] SP [id number] BS [place] Medigap Part B Self [employer] ([facility]) Commercial Self [facility] [id number] SP [id number] [facility] Commercial Self BC/BS Of [place] Commercial Self MEDICARE [id number] SP [id number] A BCBS [place] PPO 302/307 [id number] SP [id number] BCBS OF [place] 301/801 [id number] SP [id number] MEDICARE S [id number] S [id number] A [place] BCBS P [id number] S [id number] BCBS [place] PPO 302/307 [id number] SP [id number] BLUE CROSS BLUE SHIELD -O/P [id number] SELF PAY UNAVAILABLE SP UNAVAILA BLE BCBS OF [place] 306/806 [id number] SP [id number] Problems, Conditions, and Diagnoses Code Display Name Description Problem Type Effective Dates Data Source(s) F43.21 52905442 Adjustment disorder with depressed mood P roblem 04/04/2019 12:00:00 AM EST eCW1 ([facility]) F43.21 [id number] Adjustment disorder with depressed mood P roblem 04/04/2019 12:00:00 AM EST eCW1 ([facility]) Surgeries/Procedures Procedure Description Date Indications Data Source(s) ARTHROCENTESIS ASPIR&/INJECTION MAJOR JT/BURSA 020 12:00:00 AM EST MEDENT ([facility]) PSYTX W PT 45 MINUTES 07/28/2019 12:00:00 AM EDT eCW1 ([facility]) Office Visit, Est Pt., Level 3 PC 06/04/2019 12:00:00 AM EDT eCW1 ([facility]) Office Visit, Est Pt., Level 2 FC 06/04/2019 12:00:00 AM EDT eCW1 ([facility]) PSYCH DIAGNOSTIC EVALUATION 04/01/2019 12:00:00 AM EST eCW1 ([facility] [facility] Est Pt., Level 4 PC 03/11/2019 12:00:00 AM EST eCW1 ([facility]) Results ID Date Data Source [id number] 12/25/2019 01:14:32 PM EDT [facility] Vital SignsTemperature: 97.2FB lood Pressure: 127/79 Patient History Medical History:High blood pressureHigh chlosterolArthritisGastric RefluxSurgical History:Fatty tissue on back Family History:Social/Personal History: Smoking Status: never smokerProblem list reviewed during this update.No known problems.Medication list reviewed during this update.No known medications.Current Allergies: * LATEX (Critical)* PENICILLIN (Critical)Allergy list reviewed during this update.Past Medical History:(reviewed - no changes required) High blood pressureHigh chlosterolArthritisGastric Reflux Dental Chart: Procedures:Type - CDT Code - Description B - (D1110) Prophylaxis, adult (Performed by Yaneli Root RDH) B - (D0330) Panoramic film (Performed by Yaneli Root RDH) B - (D0274) Bitewings, 4 radiographic images (Performed by Yaneli Root RDH) B - (D0150) Comprehensive oral evaluation - new or established patient (Performed by Theodore Crooks DDS) Treatments:Type - CDT Code - Description T - (D2392) Resin-based composite, 2 surfaces, posterior on Tooth # 29 on Tooth Surface DO (Performed by Yaneli Root RDH) Existing:Type - CDT Code - Description[E] Decay On #29 Surface DO[E] [employer] On #11 Surface DL, #13 Surface D, #19 Surface O, #31 Surface O[E] Resin-Based Composite - Direct On #10 Surface ML, #12 Surface OD, #13 Surface MO[E] Missing - [place] and [place] On #1 Surface O Region XR, #14 Surface O Region XR, #16 Surface O Region XR, #17 Surface O Region XR, #18 Surface O Region XR, #3 Surface O Region XR, #32 Surface O Region XR Chart Notes:jayne (Dec 26 2019 4:19PM): [facility](-). CC: none. Reviewed Xrays. Exam: caries detected. OCS: WNL, IO/ EO completed, No significant hard findings upon clinical exam.Additional PPE requirements due to COVID-19 in the dental setting, N95, surgical mask, hair covering, gown and shieldPt was cooperative. OHI given Referral: N/A NV:Yaneli Garcia RDH by jayne (12/26/2019 4:19 PM): ; edwin (Dec 25 2019 2:08PM): Additional PPE requirements due to COVID-19 in the dental setting, N95, surgical mask, hair covering, gown. [facility] with patient. No problems or concerns today. Pt. was going to Dr. Figueroa's officeOral cancer screening-no significant findings. Tempature:97.2Adult prophy- handscaled and used cavitron in all quads-pt. tolerated well, sinhala- mint prophy paste, floss, 4 BW's, panorexOH-Patient brushes twice/day and is not flossing regularlyLT gen marginal biofilm and marginal/introproximal calculus on LA. Tissues are pink and healthyOHI- Advise to brush 2x a day and floss everyday. Recommended Listerine ZeroPatient is cooperative but was very difficult to take radiographs. NV- 6 month recall/fillingYaneli Bhandari RDH by edwin (12/25/2019 2:00 PM): Tooth Notes and Watches: Assessment & Plan Allergies:* LATEX (Critical)* PENICILLIN (Critical) Name Value Range Interpretation Code Description Data Lulu rce(s) Supporting Document(s) ID Date Data Source [id number] 08/19/2019 01:25:23 PM EDT [facility] Dental Chart: Procedures:Type - CDT Cod e - Description B - (D0270) Bitewing, single radiographic image (Performed by Theodore Crooks DDS) B - (D0140) Limited oral evaluation - problem focused on Tooth # 30 (Performed by Theodore Crooks DDS) B - (D1999) Unspecified preventive procedure, by report on Tooth # 30 (Performed by Theodore Crooks DDS) B - (D0220) Intraoral, periapical, first radiographic image on Tooth # 30 (Performed by Theodore Crooks DDS) Existing:Type - CDT Code - Description[E] [place] - 3/4 Cast Predominantly Base Metal On #30 Chart Notes:jayne (Aug 19 2019 3:56PM): CC: 'My glue feel out of my crown."HPI: Gum started to hurt yesterday.Pain Lvl: 2RMH (=) high blood pressure,cholestrolAllergies; See scanned listBP:131/80Temperature: 98.0PA taken- #30 Dexis NO pap, dcay noted. [place] appears to be seated well on the toothExam reveals: #30 crown is not loose, margins are sealed well. no decay felt. gum tissue appears normal. 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 was cooperativeDX: molar with a PFM crownPlan: reassurance, Comp examAdditional PPE were used due to COVID-19. This included a minimum of a N95, a surgical mask, a hair covering, a face shield, proctective eyewear, and a gown.NV: comp Theodore Costello DDS by jayne (08/19/2019 3:56 PM): Tooth Notes and Watches: Assessment & Plan Name Value Range Interpretation Code Description Data Lulu rce(s) Supporting Document(s) Procedure Social History Code Duration Value Status Description Data Source(s ) Smoking 01/14/2020 12:00:00 AM EST Patient has never smoked co mpleted Patient has never smoked MEDENT ([facility], [facility]) Smoking 09/12/2019 12:00:00 AM EDT Never Smoker completed Never S moker eCW1 ([facility]) Smoking 09/12/2019 12:00:00 AM EDT Never Smoker completed Never S moker eCW1 ([facility]) Smoking 09/12/2019 12:00:00 AM EDT Never Smoker completed Never S moker eCW1 ([facility]) Smoking 09/12/2019 12:00:00 AM EDT Never Smoker completed Never S moker eCW1 ([facility]) Smoking 09/12/2019 12:00:00 AM EDT Never Smoker completed Never S moker eCW1 ([facility]) Smoking 09/12/2019 12:00:00 AM EDT Never Smoker completed Never S moker eCW1 ([facility]) Smoking 09/12/2019 12:00:00 AM EDT Never Smoker completed Never S moker eCW1 ([facility]) Smoking 06/04/2019 12:00:00 AM EDT Never Smoker completed Never S moker eCW1 ([facility]) Vital Signs ID Date Data Source UNK Name Value Range Interpretation Code Description Data Source(s) Body mass index (BMI) [Ratio] 39.9 kg/m2 39.9 k g/m2 MEDENT ([facility] ) Body weight 223.50 [lb_av] 223.50 [lb_av] MEDEN T ([facility] ) Body height 62.75 [in_i] 62.75 [in_i] MEDENT ([facility] ) 5'2.75" Body temperature 96.9 [degF] 96.9 [degF] MEDENT ([facility]) Body mass index (BMI) [Ratio] 38.6 kg/m2 38.6 k g/m2 MEDENT ([facility], [facility]) Body height 64 [in_i] 64 [in_i] MEDENT ([facility], [facility]) 5'4" Body weight 225.00 [lb_av] 225.00 [lb_av] MEDEN T ([facility], [facility]) Body temperature 98.6 [degF] 98.6 [degF] MEDENT ([facility], [facility]) Oxygen saturation in Arterial blood by Pulse oximetry 97 % 97 % MEDENT ([facility], [facility]) Respiratory rate 16 /min 16 /min MEDENT ( [facility], [facility]) Heart rate 87 /min 87 /min MEDENT ([facility], [facility]) Diastolic blood pressure 81 mm[Hg] 81 mm[Hg] MEDENT ([facility], [facility]) Systolic blood pressure 147 mm[Hg] 147 mm[Hg] M EDENT ([facility], [facility]) Diastolic blood pressure 84 mm[Hg] 84 mm[Hg] eCW1 ([facility]) Systolic blood pressure 148 mm[Hg] 148 mm[Hg] e CW1 ([facility]) Body temperature 96.3 [degF] 96.3 [degF] eCW1 ( [facility]) Respiratory rate 18 /min 18 /min eCW1 ([facility]) Heart rate 94 /min 94 /min eCW1 ([facility]) Body mass index (BMI) [Ratio] 39.30 kg/m2 39.30 kg/m2 W1 ([facility]) Body height 64 [in_i] 64 [in_i] eCW1 ([facility]) Body weight 229 [lb_av] 229 [lb_av] eCW1 ([facility]) Diastolic blood pressure 90 mm[Hg] 90 mm[Hg] eCW1 ([facility]) Systolic blood pressure 140 mm[Hg] 140 mm[Hg] e CW1 ([facility]) Body temperature 98.2 [degF] 98.2 [degF] eCW1 ( [facility]) Respiratory rate 19 /min 19 /min eCW1 ([facility]) Heart rate 88 /min 88 /min eCW1 ([facility]) Body mass index (BMI) [Ratio] 38.75 kg/m2 38.75 kg/m2 eCW1 ([facility]) Body height 64 [in_us] 64 [in_us] eCW1 ([facility]) Body weight Measured 225.8 [lb_av] 225.8 [lb_av ] eCW1 ([facility]) Heart rate 74 /min 74 /min MEDENT ([facility], [facility]) Diastolic blood pressure 82 mm[Hg] 82 mm[Hg] MEDENT ([facility], [facility]) Systolic blood pressure 145 mm[Hg] 145 mm[Hg] M EDENT ([facility], [facility]) Body mass index (BMI) [Ratio] 38.6 kg/m2 38.6 k g/m2 MEDENT ([facility], [facility]) Body height 64 [in_i] 64 [in_i] MEDENT ([facility], [facility]) 5'4" Body weight 225.00 [lb_av] 225.00 [lb_av] MEDEN T ([facility], [facility]) Body temperature 98.4 [degF] 98.4 [degF] MEDENT ([facility], [facility]) Oxygen saturation in Arterial blood by Pulse oximetry 94 % 94 % MEDENT ([facility]) Respiratory rate 16 /min 16 /min MEDENT ( [facility]) Diastolic blood pressure 80 mm[Hg] 80 mm[Hg] eCW1 ([facility]) Systolic blood pressure 140 mm[Hg] 140 mm[Hg] e CW1 ([facility]) Body temperature 98.8 [degF] 98.8 [degF] eCW1 ( [facility]) Respiratory rate 20 /min 20 /min eCW1 ([facility]) Heart rate 85 /min 85 /min eCW1 ([facility]) Body mass index (BMI) [Ratio] 39.82 kg/m2 39.82 kg/m2 eCW1 ([facility]) Body height 64 [in_us] 64 [in_us] eCW1 ([facility]) Body weight Measured 232 [lb_av] 232 [lb_av] eC W1 ([facility]) Patient Treatment Plan of Care Planned Activity Planned Date Details Description Data Source (s) Metronidazole 7.5 MG/ML Topical Cream 08/11/2019 12:00:00 AM EDT eCW1 ([facility]) Amlodipine 5 MG Oral Tablet 03/11/2019 12:00:00 AM EST eCW1 ([facility]) Amlodipine 5 MG Oral Tablet 03/11/2019 12:00:00 AM EST eCW1 ([facility]) Amlodipine 5 MG Oral Tablet 03/11/2019 12:00:00 AM EST eCW1 ([facility]) Furosemide 20 MG Oral Tablet 03/11/2019 12:00:00 AM EST eCW1 ([facility])
[2020-03-09 20:38] VITALS: BP 152/95
== END 2020-03-09 20:44 | disposition home or self-care (01) ==
LOC: EDBD 17:41 → M ED 17:41
DX: R07.89 Other chest pain (principal); V49.40XA Driver injured in collision with unspecified motor vehicles in traffic accident, initial encounter; I51.7 Cardiomegaly; E78.5 Hyperlipidemia, unspecified; Z88.2 Allergy status to sulfonamides; Z88.8 Allergy status to other drugs, medicaments and biological substances; Z79.899 Other long term (current) drug therapy

== ENCOUNTER → 2020-08-05 | Outpatient (CLI) | payer MEDICARE ==
--- NOTE | 2020-08-05 13:52 | REPMRS ---
Patient History The patient states she has not had a clinical breast exam in over a year. Family history of breast cancer at age 48 in sister. No Hormone Replacement Therapy Patient states no breast complaints today. Patient has signed MRS History Sheet. Digital Woman Screen Mammo: August 05, 2020 - Exam #: [id number] Bilateral CC and MLO view(s) were taken. Technologist: Annie Torres, Technologist Prior study comparison: August 01, 2019, bilateral digital woman screen mammo performed at [facility]. July 29, 2018, bilateral digital woman screen mammo performed at [facility]. FINDINGS: There are scattered fibroglandular densities. Screening. Digital screening (2D) mammography was performed bilaterally in the CC and MLO projections. Additionally, breast tomosynthesis (3D mammography) was performed bilaterally in the CC and MLO projections. Todays exam was compared to the prior exam/exams. By history, the patient has no complaints of a palpable breast abnormality or other significant breast complaints. The breasts are unchanged in size and shape. There are no prerna-soft tissue densities or spiculated masses. There is no internal architectural distortion.Once again, stable benign appearing calcifications are seen. There are no suspicious prerna-calcific clusters. Skin thickening or nipple retraction is not present. IMPRESSION: BI-RADS Category 2- Benign Findings. There is no evidence of malignant alteration of the breasts. Followup examination recommended in one year. The Volpara volumetric breast density category is B, there are scattered areas of fibroglandular density. This mammogram was read with the assistance of Mat[employer] CedenoWithin3,an FDA approved computer aided detection system for mammography. The lifetime Tyrer-Cuzick score is 7.9 % Negative x-ray reports should not delay surgical consultation if a dominant or clinically suspicious mass is present. Not all breast cancers can be identified by mammography. Therefore, we recommend that you continue to perform regular breast self-examination and physical examination and then promptly contact your physician of any concerns or changes. Adenosis and dense breasts may obscure an underlying neoplasm. Assessment: BI-RADS/ACR category 2 mammogram. Benign Findings. Recommendation Routine screening mammogram of both breasts in 1 year. Electronically Signed By: Mark Garza DO 08/05/20 [id number]
== END ==
LOC: M WHC 12:51
PROVIDERS: ATTEND Family Medicine
DX: Z12.31 Encounter for screening mammogram for malignant neoplasm of breast (principal); Z80.3 Family history of malignant neoplasm of breast

== ENCOUNTER → 2021-01-31 | Outpatient (CLI) | payer MEDICARE ==
[2021-01-31 09:58] LABS: HEMATOCRIT 43.7 % (36.0-47.0); HEMOGLOBIN 14.4 g/dl (12.0-15.5); MEAN CORPUSCULAR HEMOGLOBIN 29.9 pg (27.0-33.0); MEAN CORPUSCULAR VOLUME 90.7 fl (80.0-96.0); PLATELET COUNT, AUTOMATED 209 10^3/uL (150-450); RED BLOOD COUNT 4.82 10^6/uL (4.00-5.40); WHITE BLOOD COUNT 5.7 10^3/uL (4.0-10.0)
[2021-01-31 11:14] LABS: ALBUMIN 3.5 GM/DL (3.2-5.2); ALT/SGPT 29 U/L (12-78); BILIRUBIN,TOTAL 0.7 MG/DL (0.2-1.0); BLOOD UREA NITROGEN 16 MG/DL (7-18); CALCIUM LEVEL 9.1 MG/DL (8.8-10.2); CARBON DIOXIDE LEVEL 28 MEQ/L (21-32); CHLORIDE LEVEL 107 MEQ/L (98-107); CHOLESTEROL LEVEL 154 MG/DL (<200); CREATININE FOR GFR 0.64 MG/DL (0.55-1.30); FREE T4 1.08 NG/DL (0.76-1.46); GLOMERULAR FILTRATION RATE > 60.0 (>39); GLUCOSE, FASTING 114 MG/DL (70-100); HDL CHOLESTEROL 56 MG/DL (>40); LDL CHOLESTEROL 68 MG/DL (<100); NON-HDL-C 98 MG/DL; POTASSIUM SERUM 3.8 MEQ/L (3.5-5.1); SODIUM LEVEL 143 MEQ/L (136-145); TOTAL PROTEIN 6.5 GM/DL (6.4-8.2); TRIGLYCERIDES LEVEL 151 MG/DL (<150)
== END ==
LOC: M WUC 08:06
PROVIDERS: ATTEND Family Medicine
DX: E04.2 Nontoxic multinodular goiter (principal); I11.9 Hypertensive heart disease without heart failure; E78.2 Mixed hyperlipidemia; E74.9 Disorder of carbohydrate metabolism, unspecified; R60.0 Localized edema; Z79.899 Other long term (current) drug therapy

== ENCOUNTER → 2021-04-15 | Outpatient (REF) | payer MEDICARE ==
[~2021-04-15] MED LIST changes: +OMEP-173 PO; -OMEP-218 PO; +TIZA10TA PO; -TIZA4TAB4 PO
== END ==
LOC: M LAB REF 16:16
PROVIDERS: ATTEND Podiatrist Foot & Ankle Surgery
DX: C43.72 Malignant melanoma of left lower limb, including hip (principal)

== ENCOUNTER → 2021-04-29 | Outpatient (CLI) | payer MEDICARE | LOC: M RAD 14:51 | PROVIDERS: ATTEND Nurse Practitioner Family | DX: R60.0 Localized edema (principal) ==

== ENCOUNTER → 2021-05-30 | Outpatient (CLI) | payer MEDICARE | LOC: M PLARAD 07:59 | DX: C43.72 Malignant melanoma of left lower limb, including hip (principal); E27.9 Disorder of adrenal gland, unspecified; I25.10 Atherosclerotic heart disease of native coronary artery without angina pectoris; I51.7 Cardiomegaly; J34.2 Deviated nasal septum; J34.1 Cyst and mucocele of nose and nasal sinus; K76.0 Fatty (change of) liver, not elsewhere classified; K57.30 Diverticulosis of large intestine without perforation or abscess without bleeding; R93.7 Abnormal findings on diagnostic imaging of other parts of musculoskeletal system | CPT/HCPCS: 78816; A9552 ==

== ENCOUNTER 2021-06-17 12:19 | Emergency (ER) | payer MEDICARE ==
[~2021-06-17] VITALS: Ht 157.5 cm; Wt 109.8 kg
[2021-06-17 13:54] VITALS: BP 146/74
== END 2021-06-17 14:12 | disposition home or self-care (01) ==
LOC: M ED 13:18
DX: Z48.00 Encounter for change or removal of nonsurgical wound dressing (principal); I10 Essential (primary) hypertension; K21.9 Gastro-esophageal reflux disease without esophagitis; Z79.899 Other long term (current) drug therapy; Z88.0 Allergy status to penicillin; Z88.2 Allergy status to sulfonamides; Z88.8 Allergy status to other drugs, medicaments and biological substances

== ENCOUNTER 2021-06-20 22:45 | Emergency (ER) | payer MEDICARE ==
[~2021-06-20] VITALS: Ht 167.6 cm; Wt 104.5 kg
[2021-06-21 00:50] VITALS: BP 133/74
== END 2021-06-21 00:54 | disposition home or self-care (01) ==
LOC: M ED 22:45 → EDBD 22:45 → M ED 06-21 00:54
DX: Z48.01 Encounter for change or removal of surgical wound dressing (principal); K44.9 Diaphragmatic hernia without obstruction or gangrene; Z79.899 Other long term (current) drug therapy; Z88.0 Allergy status to penicillin; Z88.2 Allergy status to sulfonamides; Z88.8 Allergy status to other drugs, medicaments and biological substances

== ENCOUNTER 2021-07-22 14:46 | Emergency (ER) | payer MEDICARE ==
[~2021-07-22] VITALS: Ht 160 cm; Wt 104.5 kg
[2021-07-22] MEDS ORDERED: cefTRIAXone SOD 1 GM in D5W MINI-BAG PLUS 50 ML IV ONE (17:10)
[2021-07-22 17:33] LABS: BASO # 0.1 10^3/uL (0.0-0.2); BASO % 0.7 % (0.0-1.0); EOS # 0.1 10^3/uL (0.0-0.5); EOS % 1.2 % (0.0-3.0); HEMOGLOBIN 13.5 g/dl (12.0-15.5); LYMPH # 1.2 10^3/uL (1.5-5.0); LYMPH % 17.2 % (24.0-44.0); MEAN CORPUSCULAR HEMOGLOBIN 30.1 pg (27.0-33.0); MEAN CORPUSCULAR HGB CONC 32.9 g/dl (32.0-36.5); MEAN CORPUSCULAR VOLUME 91.5 fl (80.0-96.0); MONO # 0.5 10^3/uL (0.0-0.8); MONO % 7.1 % (2.0-8.0); NEUTROPHILS % 72.4 % (36.0-66.0); PLATELET COUNT, AUTOMATED 325 10^3/uL (150-450); RED BLOOD COUNT 4.48 10^6/uL (4.00-5.40); WHITE BLOOD COUNT 6.9 10^3/uL (4.0-10.0)
[2021-07-22 18:00] LABS: BLOOD UREA NITROGEN 12 MG/DL (7-18); C REACTIVE PROTEIN QUANTITATIV 7.29 MG/DL (0.00-0.30); CALCIUM LEVEL 9.1 MG/DL (8.8-10.2); CARBON DIOXIDE LEVEL 30 MEQ/L (21-32); CHLORIDE LEVEL 107 MEQ/L (98-107); CREATININE FOR GFR 0.62 MG/DL (0.55-1.30); GLOMERULAR FILTRATION RATE > 60.0 (>39); GLUCOSE, FASTING 119 MG/DL (70-100); POTASSIUM SERUM 3.2 MEQ/L (3.5-5.1); SODIUM LEVEL 141 MEQ/L (136-145)
[2021-07-22 18:03] LABS: ERYTHROCYTE SEDIMENTATION RATE 57 mm/hr (0-30)
[2021-07-22] MEDS ORDERED: CEPH500C PO (19:04)
[2021-07-22 19:11] VITALS: BP 178/84
== END 2021-07-22 19:14 | disposition home or self-care (01) ==
LOC: M ED 14:46
DX: L02.214 Cutaneous abscess of groin (principal); I10 Essential (primary) hypertension; K21.9 Gastro-esophageal reflux disease without esophagitis; K44.9 Diaphragmatic hernia without obstruction or gangrene; Z88.0 Allergy status to penicillin; Z88.2 Allergy status to sulfonamides; Z88.8 Allergy status to other drugs, medicaments and biological substances; Z79.899 Other long term (current) drug therapy
CPT/HCPCS: 36415; 80048; 85025; 85652; 86140; 87070; 87077; 87186; 87205; 96365; 96366; 99284; J0696

== ENCOUNTER → 2021-10-05 | Outpatient (CLI) | payer MEDICARE ==
[~2021-10-05] MED LIST changes: +CEPH500C PO; +FURO20TA2; +VITACAP8 PO
== END ==
LOC: M WHC 09:56
PROVIDERS: ATTEND Family Medicine
DX: Z12.31 Encounter for screening mammogram for malignant neoplasm of breast (principal)

== ENCOUNTER → 2021-12-02 | Outpatient (CLI) | payer MEDICARE ==
[~2021-12-02] MED LIST changes: +POTA10CA32 PO
[2021-12-02 10:23] LABS: HEMATOCRIT 43.1 % (36.0-47.0); HEMOGLOBIN 14.3 g/dl (12.0-15.5); MEAN CORPUSCULAR HEMOGLOBIN 29.8 pg (27.0-33.0); MEAN CORPUSCULAR HGB CONC 33.2 g/dl (32.0-36.5); MEAN CORPUSCULAR VOLUME 89.8 fl (80.0-96.0); PLATELET COUNT, AUTOMATED 196 10^3/uL (150-450); WHITE BLOOD COUNT 4.7 10^3/uL (4.0-10.0)
[2021-12-02 10:46] LABS: HEMOGLOBIN A1c 6.4 %
[2021-12-02 11:34] LABS: ALBUMIN 3.3 GM/DL (3.2-5.2); ALT/SGPT 20 U/L (12-78); BILIRUBIN,TOTAL 0.6 MG/DL (0.2-1.0); BLOOD UREA NITROGEN 17 MG/DL (7-18); CALCIUM LEVEL 8.9 MG/DL (8.8-10.2); CARBON DIOXIDE LEVEL 29 MEQ/L (21-32); CHLORIDE LEVEL 107 MEQ/L (98-107); CHOLESTEROL LEVEL 155 MG/DL (<200); CREATININE FOR GFR 0.59 MG/DL (0.55-1.30); FREE T4 1.06 NG/DL (0.76-1.46); GLOMERULAR FILTRATION RATE > 60.0 (>39); GLUCOSE, FASTING 149 MG/DL (70-100); HDL CHOLESTEROL 52 MG/DL (>40); LDL CHOLESTEROL 77 MG/DL (<100); NON-HDL-C 103 MG/DL; POTASSIUM SERUM 4.5 MEQ/L (3.5-5.1); SODIUM LEVEL 141 MEQ/L (136-145); TOTAL PROTEIN 6.5 GM/DL (6.4-8.2); TRIGLYCERIDES LEVEL 128 MG/DL (<150)
[2021-12-02 13:20] LABS: TOTAL 25(OH) VITAMIN D 35.2 NG/ML (30.0-100.0)
== END ==
LOC: M WUC 08:04
PROVIDERS: ATTEND Family Medicine
DX: C43.72 Malignant melanoma of left lower limb, including hip (principal); I11.9 Hypertensive heart disease without heart failure; E78.2 Mixed hyperlipidemia; E04.2 Nontoxic multinodular goiter; E55.9 Vitamin D deficiency, unspecified; Z79.899 Other long term (current) drug therapy

== ENCOUNTER → 2022-01-31 | Outpatient (CLI) | payer MEDICARE ==
[~2022-01-31] MED LIST changes: +VITA100093 PO
== END ==
LOC: M RAD 12:13
PROVIDERS: ATTEND Internal Medicine Medical Oncology
DX: E04.1 Nontoxic single thyroid nodule (principal)

== ENCOUNTER → 2022-03-15 | Outpatient (CLI) | payer MEDICARE ==
[~2022-03-15] MED LIST changes: +ISOVUE-370 76% 100ML VIAL As Ordered ONE; -POTA10CA32 PO; +POTA10CA33 PO
== END ==
LOC: M RAD 09:56
PROVIDERS: ATTEND Internal Medicine Medical Oncology
DX: C43.72 Malignant melanoma of left lower limb, including hip (principal)
CPT/HCPCS: 71260; Q9967

== ENCOUNTER → 2022-05-29 | Outpatient (REF) | payer MEDICARE ==
[~2022-05-29] MED LIST changes: -ISOVUE-370 76% 100ML VIAL As Ordered ONE
== END ==
LOC: M LAB REF 17:53
PROVIDERS: ATTEND Internal Medicine Endocrinology, Diabetes & Metabolism
DX: E04.2 Nontoxic multinodular goiter (principal)

== ENCOUNTER → 2022-06-01 | Outpatient (CLI) | payer MEDICARE ==
[2022-06-01 10:52] LABS: BLOOD UREA NITROGEN 13 MG/DL (9-23); CALCIUM LEVEL 8.5 MG/DL (8.3-10.6); CARBON DIOXIDE LEVEL 31 MMOL/L (20-31); CHLORIDE LEVEL 106 MMOL/L (98-107); CREATININE FOR GFR 0.55 MG/DL (0.55-1.30); GLOMERULAR FILTRATION RATE > 60.0 (>39); GLUCOSE, FASTING 138 MG/DL (74-106); POTASSIUM SERUM 4.1 MMOL/L (3.5-5.1); SODIUM LEVEL 144 MMOL/L (136-145)
[2022-06-01 11:17] LABS: HEMOGLOBIN A1c 6.6 % (4.0-6.0)
== END ==
LOC: M WUC 08:01
PROVIDERS: ATTEND Family Medicine
DX: E74.9 Disorder of carbohydrate metabolism, unspecified (principal); Z79.899 Other long term (current) drug therapy

== ENCOUNTER → 2022-10-09 | Outpatient (CLI) | payer MEDICARE ==
[~2022-10-09] MED LIST changes: -POTA10CA33 PO; +POTA10CA60 PO
== END ==
LOC: M WHC 12:33
PROVIDERS: ATTEND Family Medicine
DX: Z12.31 Encounter for screening mammogram for malignant neoplasm of breast (principal)

== ENCOUNTER 2022-10-13 00:16 | Emergency (ER) | payer MEDICARE ==
[~2022-10-13] VITALS: Ht 162.6 cm; Wt 104.5 kg
[2022-10-13] MEDS ORDERED: CYCLOBENZAPRINE 5MG TABLET PO ONE (07:20)
[2022-10-13] MEDS ORDERED: PERCOCET 5MG/325MG TAB PO ONE ×2 (07:20→09:00)
[2022-10-13] MEDS ORDERED: CARVedilol 12.5 MG TAB PO ONE (09:00)
[2022-10-13] MEDS ORDERED: POTASSIUM CHLORIDE 10MEQ SR TABLET PO ONE (09:00)
[2022-10-13 09:14] VITALS: BP 150/76
[2022-10-13] MEDS ORDERED: amLODIPine 5 MG TAB PO ONE (09:25)
[2022-10-13] MEDS ORDERED: PERC5TAB12 PO ×2 (09:39→11:06)
[2022-10-13] MEDS ORDERED: CYCL-707 PO (09:41)
[2022-10-13] MEDS ORDERED: IBUP-1022 PO (09:43)
[2022-10-13 11:14] VITALS: BP 124/61; TEMP 96.1; O2SAT 95
== END 2022-10-13 11:08 | disposition home or self-care (01) ==
LOC: M ED 00:16
DX: M54.50 Low back pain, unspecified (principal); I10 Essential (primary) hypertension; E78.5 Hyperlipidemia, unspecified; K21.9 Gastro-esophageal reflux disease without esophagitis; F10.10 Alcohol abuse, uncomplicated; Z88.0 Allergy status to penicillin; Z88.2 Allergy status to sulfonamides; Z88.8 Allergy status to other drugs, medicaments and biological substances; Z79.811 Long term (current) use of aromatase inhibitors; Z79.899 Other long term (current) drug therapy

== ENCOUNTER → 2022-12-01 | Outpatient (CLI) | payer MEDICARE ==
[~2022-12-01] MED LIST changes: +CYCL-707 PO; +IBUP-1022 PO; +PERC5TAB12 PO
[2022-12-01 12:25] LABS: HEMATOCRIT 42.8 % (36.0-47.0); HEMOGLOBIN 14.4 g/dl (12.0-15.5); MEAN CORPUSCULAR HEMOGLOBIN 30.2 pg (27.0-33.0); MEAN CORPUSCULAR HGB CONC 33.6 g/dl (32.0-36.5); MEAN CORPUSCULAR VOLUME 89.7 fl (80.0-96.0); PLATELET COUNT, AUTOMATED 280 10^3/uL (150-450); RED BLOOD COUNT 4.77 10^6/uL (4.00-5.40); WHITE BLOOD COUNT 5.5 10^3/uL (4.0-10.0)
[2022-12-01 12:43] LABS: HEMOGLOBIN A1c 7.2 % (4.0-6.0)
[2022-12-01 12:57] LABS: ALBUMIN 3.5 G/DL (3.2-5.2); ALKALINE PHOSPHATASE 96 U/L (46-116); ALT/SGPT 24 U/L (7.0-40); AST/SGOT 21 U/L (<34); BILIRUBIN,TOTAL 0.7 MG/DL (0.3-1.2); BLOOD UREA NITROGEN 11 MG/DL (9-23); CALCIUM LEVEL 8.9 MG/DL (8.3-10.6); CARBON DIOXIDE LEVEL 30 MMOL/L (20-31); CHLORIDE LEVEL 106 MMOL/L (98-107); CHOLESTEROL LEVEL 137 MG/DL (<200); CHOLESTEROL RISK RATIO 3.25 (<5); CREATININE FOR GFR 0.55 MG/DL (0.55-1.30); CREATININE, URINE 103.3 MG/DL; GLOMERULAR FILTRATION RATE > 60.0 (>39); GLUCOSE, FASTING 128 MG/DL (74-106); HDL CHOLESTEROL 42.1 MG/DL (>40); LDL CHOLESTEROL 66.1 MG/DL (<100); NON-HDL-C 94.9 MG/DL; POTASSIUM SERUM 3.6 MMOL/L (3.5-5.1); SODIUM LEVEL 144 MMOL/L (136-145); TOTAL PROTEIN 6.7 G/DL (5.7-8.2); TRIGLYCERIDES LEVEL 144 MG/DL (<150)
[2022-12-01 12:58] LABS: MAU/CREAT RATIO 8.7 MCG/MG (0.0-30.0)
== END ==
LOC: M WUC 10:43
PROVIDERS: ATTEND Family Medicine
DX: E11.9 Type 2 diabetes mellitus without complications (principal); E78.2 Mixed hyperlipidemia

== ENCOUNTER → 2023-02-27 | Outpatient (REF) | payer MEDICARE ==
[2023-02-27 11:29] LABS: BLOOD UREA NITROGEN 15 MG/DL (9-23); CARBON DIOXIDE LEVEL 31 MMOL/L (20-31); CHLORIDE LEVEL 105 MMOL/L (98-107); CREATININE FOR GFR 0.56 MG/DL (0.55-1.30); CREATININE, URINE 152.5 MG/DL; GLOMERULAR FILTRATION RATE > 60.0 (>39); GLUCOSE, FASTING 114 MG/DL (74-106); POTASSIUM SERUM 4.1 MMOL/L (3.5-5.1); SODIUM LEVEL 142 MMOL/L (136-145)
[2023-02-27 11:30] LABS: MAU/CREAT RATIO 1.9 MCG/MG (0.0-30.0)
[2023-02-27 12:04] LABS: HEMOGLOBIN A1c 6.4 % (4.0-6.0)
== END ==
LOC: M LABWUC 09:47
PROVIDERS: ATTEND Family Medicine
DX: E11.9 Type 2 diabetes mellitus without complications (principal)

== ENCOUNTER → 2023-09-18 | Outpatient (CLI) | payer MEDICARE ==
[~2023-09-18] MED LIST changes: -POTA10CA60 PO; +POTA10CA70 PO
[2023-09-18 11:46] LABS: HEMATOCRIT 41.2 % (36.0-47.0); HEMOGLOBIN 13.9 g/dl (12.0-15.5); MEAN CORPUSCULAR HEMOGLOBIN 31.1 pg (27.0-33.0); MEAN CORPUSCULAR HGB CONC 33.7 g/dl (32.0-36.5); MEAN CORPUSCULAR VOLUME 92.2 fl (80.0-96.0); PLATELET COUNT, AUTOMATED 194 10^3/uL (150-450); RED BLOOD COUNT 4.47 10^6/uL (4.00-5.40); WHITE BLOOD COUNT 4.5 10^3/uL (4.0-10.0)
[2023-09-18 12:08] LABS: HEMOGLOBIN A1c 5.8 % (4.0-6.0)
[2023-09-18 12:15] LABS: ALBUMIN 3.4 G/DL (3.2-5.2); ALKALINE PHOSPHATASE 87 U/L (46-116); ALT/SGPT 17 U/L (7.0-40); AST/SGOT < 8 U/L (<34); BILIRUBIN,TOTAL 0.7 MG/DL (0.3-1.2); BLOOD UREA NITROGEN 14 MG/DL (9-23); CALCIUM LEVEL 8.9 MG/DL (8.3-10.6); CARBON DIOXIDE LEVEL 28 MMOL/L (20-31); CHLORIDE LEVEL 110 MMOL/L (98-107); CHOLESTEROL LEVEL 142 MG/DL (<200); CREATININE FOR GFR 0.57 MG/DL (0.55-1.30); GLOMERULAR FILTRATION RATE > 60.0 (>39); GLUCOSE, FASTING 126 MG/DL (74-106); LDL CHOLESTEROL 74.6 MG/DL (<100); POTASSIUM SERUM 3.8 MMOL/L (3.5-5.1); SODIUM LEVEL 144 MMOL/L (136-145); TOTAL PROTEIN 5.9 G/DL (5.7-8.2); TRIGLYCERIDES LEVEL 122 MG/DL (<150)
[2023-09-18 12:18] LABS: FREE T4 0.96 NG/DL (0.89-1.76)
[2023-09-18 12:19] LABS: THYROID STIMULATING HORMONE 2.024 uIU/ML (0.55-4.78)
== END ==
LOC: M WUC 08:20
PROVIDERS: ATTEND Family Medicine
DX: E11.9 Type 2 diabetes mellitus without complications (principal); E78.2 Mixed hyperlipidemia; I11.9 Hypertensive heart disease without heart failure; Z85.820 Personal history of malignant melanoma of skin

== ENCOUNTER → 2023-10-11 | Outpatient (CLI) | payer MEDICARE | LOC: M WHC 13:00 | PROVIDERS: ATTEND Family Medicine | DX: Z12.31 Encounter for screening mammogram for malignant neoplasm of breast (principal); M85.851 Other specified disorders of bone density and structure, right thigh; M85.852 Other specified disorders of bone density and structure, left thigh ==

== ENCOUNTER → 2024-04-11 | Outpatient (CLI) | payer MEDICARE ==
[2024-04-11 12:19] LABS: BLOOD UREA NITROGEN 11 MG/DL (9-23); CALCIUM LEVEL 8.7 MG/DL (8.3-10.6); CARBON DIOXIDE LEVEL 29 MMOL/L (20-31); CHLORIDE LEVEL 107 MMOL/L (98-107); CREATININE FOR GFR 0.57 MG/DL (0.55-1.30); GLOMERULAR FILTRATION RATE > 60.0 (>39); GLUCOSE, FASTING 109 MG/DL (74-106); POTASSIUM SERUM 3.8 MMOL/L (3.5-5.1); SODIUM LEVEL 146 MMOL/L (136-145)
[2024-04-11 12:28] LABS: HEMOGLOBIN A1c 5.9 % (4.0-6.0)
== END ==
LOC: M WUC 08:29
PROVIDERS: ATTEND Family Medicine
DX: E11.9 Type 2 diabetes mellitus without complications (principal)

== ENCOUNTER → 2024-06-06 | Outpatient (REF) | payer MEDICARE ==
[~2024-06-06] MED LIST changes: +ESSE250T PO
[2024-06-06 19:04] LABS: HEMATOCRIT 42.2 % (36.0-47.0); HEMOGLOBIN 13.6 g/dl (12.0-15.5); MEAN CORPUSCULAR HEMOGLOBIN 29.6 pg (27.0-33.0); MEAN CORPUSCULAR HGB CONC 32.2 g/dl (32.0-36.5); MEAN CORPUSCULAR VOLUME 91.9 fl (80.0-96.0); PLATELET COUNT, AUTOMATED 302 10^3/uL (150-450); RED BLOOD COUNT 4.59 10^6/uL (4.00-5.40); WHITE BLOOD COUNT 6.5 10^3/uL (4.0-10.0)
[2024-06-06 19:12] LABS: HEMOGLOBIN A1c 5.8 % (4.0-6.0)
[2024-06-06 19:25] LABS: ALBUMIN 3.2 G/DL (3.2-5.2); ALKALINE PHOSPHATASE 107 U/L (35-104); ALT/SGPT 24 U/L (7.0-40); AST/SGOT 18 U/L (<34); BILIRUBIN,TOTAL 0.6 MG/DL (0.3-1.2); BLOOD UREA NITROGEN 11 MG/DL (9-23); CALCIUM LEVEL 8.5 MG/DL (8.3-10.6); CARBON DIOXIDE LEVEL 30 MMOL/L (20-31); CHLORIDE LEVEL 104 MMOL/L (98-107); CREATININE FOR GFR 0.54 MG/DL (0.55-1.30); GLOMERULAR FILTRATION RATE > 90.0 (>39); GLUCOSE, FASTING 107 MG/DL (74-106); POTASSIUM SERUM 3.5 MMOL/L (3.5-5.1); SODIUM LEVEL 145 MMOL/L (136-145); TOTAL PROTEIN 6.4 G/DL (5.7-8.2)
== END ==
LOC: M SFHCADAM 11:24
PROVIDERS: ATTEND Family Medicine
DX: R68.81 Early satiety (principal); R13.10 Dysphagia, unspecified; Z12.11 Encounter for screening for malignant neoplasm of colon; E11.9 Type 2 diabetes mellitus without complications

== ENCOUNTER 2024-06-26 11:31 | Day surgery (SDC) | payer MEDICARE ==
[~2024-06-26] VITALS: Ht 162.6 cm; Wt 89.8 kg
[~2024-06-26 11:31] MED LIST changes: -AMBI5TAB PO; +AMLO1TAB24 PO; +LIDOCAINE 2% 100MG/5ML SDV (FOR ANES.) As Ordered ONE; +OMEP40CA5 PO; +SEMA1PEN2 SC; +THERTAB52 PO; +ZOLP-532 PO; +propofoL 200 MG/20 ML VIAL As Ordered ONE
[2024-06-26 14:07] VITALS: TEMP 98.3
[2024-06-26 14:29] VITALS: BP 126/66; O2SAT 96
== END 2024-06-26 14:38 | disposition home or self-care (01) ==
LOC: M OPP 11:31
PROVIDERS: ATTEND Surgery
DX: K63.5 Polyp of colon (principal); K57.30 Diverticulosis of large intestine without perforation or abscess without bleeding; D17.5 Benign lipomatous neoplasm of intra-abdominal organs; K29.60 Other gastritis without bleeding; K31.7 Polyp of stomach and duodenum; R13.10 Dysphagia, unspecified; R11.2 Nausea with vomiting, unspecified; Z88.0 Allergy status to penicillin; Z88.2 Allergy status to sulfonamides; Z88.8 Allergy status to other drugs, medicaments and biological substances; Z79.85 Long-term (current) use of injectable non-insulin antidiabetic drugs; Z79.899 Other long term (current) drug therapy

== ENCOUNTER 2024-07-14 08:45 | Day surgery (SDC) | payer MEDICARE ==
[~2024-07-14] VITALS: Ht 162.6 cm; Wt 89.8 kg
[~2024-07-14 08:45] MED LIST changes: -ESSE250T PO; -LIDOCAINE 2% 100MG/5ML SDV (FOR ANES.) As Ordered ONE; +LR 1,000 ML IV SCH; +MAGN250T17 PO; +SUCR1ORA PO; -propofoL 200 MG/20 ML VIAL As Ordered ONE
[2024-07-14] MEDS: PHENYLEPHRINE 2.5% OPHTH SOL 2ML OD SCH (09:46)
[2024-07-14] MEDS: CYCLOPENTOLATE 1% OPHTH SOLN 2ML BTL OD SCH (09:46)
[2024-07-14] MEDS: TETRACAINE 0.5% OPHTH SOLN 4ML OD SCH (09:46)
[2024-07-14] MEDS: FLURBIPROFEN 0.03% OPHTH SOLN 2.5 ML OD SCH (09:46)
[2024-07-14] MEDS ORDERED: fentaNYL 100 MCG/2 ML INJECTION As Ordered ONE (10:12)
[2024-07-14] MEDS: LIDOCAINE 1% SDV 5ML VIAL As Ordered ONE (10:58)
[2024-07-14] MEDS: CEFUROXIME 1MG/0.1ML INTRACAMERAL INJ As Ordered ONE (10:59)
[2024-07-14 11:20] VITALS: BP 115/58; TEMP 97.4; O2SAT 94
== END 2024-07-14 11:35 | disposition home or self-care (01) ==
LOC: M SDC 08:45
PROVIDERS: ATTEND Ophthalmology
DX: E11.36 Type 2 diabetes mellitus with diabetic cataract (principal); H25.11 Age-related nuclear cataract, right eye; I11.9 Hypertensive heart disease without heart failure; E78.00 Pure hypercholesterolemia, unspecified; E04.2 Nontoxic multinodular goiter; R01.1 Cardiac murmur, unspecified; K21.9 Gastro-esophageal reflux disease without esophagitis; Z85.820 Personal history of malignant melanoma of skin; Z92.21 Personal history of antineoplastic chemotherapy; Z79.899 Other long term (current) drug therapy; Z88.0 Allergy status to penicillin; Z88.8 Allergy status to other drugs, medicaments and biological substances; Z88.2 Allergy status to sulfonamides; Z86.14 Personal history of Methicillin resistant Staphylococcus aureus infection
CPT/HCPCS: 66984; J0697; J3010; V2632

== ENCOUNTER 2024-09-11 18:07 | Emergency (ER) | payer MEDICARE ==
[~2024-09-11] VITALS: Ht 162.6 cm; Wt 83.2 kg
[~2024-09-11 18:07] MED LIST changes: -IBUP-1022 PO; +IBUP600T42 PO; -LR 1,000 ML IV SCH; -PRAV20TA2 PO; +PRAV20TA78 PO; +[UNRECOGNIZED DRUG - CODE] PO; -[UNRECOGNIZED DRUG - OTHER] PO
[2024-09-11 20:28] LABS: KETONE, URINE AUTO RFX TRACE mg/dL (NEGATIVE); LEUKOCYTE ESTERASE UR AUTO RFX NEGATIVE (NEGATIVE); MUCUS, URINE RFX SMALL (NEGATIVE); NITRITE, URINE AUTO RFX NEGATIVE (NEGATIVE); RBC, URINE AUTO RFX 2 /HPF (0-3); SQUAM EPITHELIAL CELL UR AURFX 0 /HPF (0-6); WBC, URINE AUTO RFX 2 /HPF (0-3)
[2024-09-12 00:45] LABS: BASO # 0.0 10^3/uL (0.0-0.2); BASO % 0.1 % (0.0-1.0); EOS # 0.0 10^3/uL (0.0-0.5); EOS % 0.0 % (0.0-3.0); LYMPH # 0.7 10^3/uL (1.5-5.0); LYMPH % 7.0 % (24.0-44.0); MONO # 0.5 10^3/uL (0.0-0.8); MONO % 5.0 % (2.0-8.0); NEUTROPHILS # 8.5 10^3/uL (1.5-8.5); NEUTROPHILS % 87.1 % (36.0-66.0); PLATELET COUNT, AUTOMATED 391 10^3/uL (150-450)
[2024-09-12 01:11] LABS: ALT/SGPT 22 U/L (7.0-40); AST/SGOT 37 U/L (<34); CALCIUM LEVEL 8.5 MG/DL (8.3-10.6); CARBON DIOXIDE LEVEL 26 MMOL/L (20-31); CHLORIDE LEVEL 97 MMOL/L (98-107); CREATININE FOR GFR 0.66 MG/DL (0.55-1.30); GLOMERULAR FILTRATION RATE > 90.0 (>39); POTASSIUM SERUM 4.5 MMOL/L (3.5-5.1); SODIUM LEVEL 138 MMOL/L (136-145)
[2024-09-12] MEDS ORDERED: ISOVUE-370 76% 100 ML VIAL As Ordered ONE (03:58)
[2024-09-12] MEDS: ONDANSETRON 4MG 2ML VIAL IV ONE (04:45)
[2024-09-12] MEDS: FAMOTIDINE 20 MG/2 ML VIAL IVP ONE (04:46)
[2024-09-12] MEDS: KETOROLAC 30 MG/ML 1 ML VIAL IV ONE (04:48)
[2024-09-12] MEDS: ACETAMINOPHEN 500 MG TAB PO ONE (04:51)
[2024-09-12] MEDS: NS (Normal Saline) 0.9% 1,000 ML IV ONE (04:57)
[2024-09-12 07:37] VITALS: TEMP 97
[2024-09-12] MEDS ORDERED: POTA10CA70 PO (07:46)
[2024-09-12] MEDS ORDERED: ACET-716 PO ×2 (08:30→09:04)
[2024-09-12] MEDS ORDERED: NAPR-885 PO (08:34)
[2024-09-12] MEDS ORDERED: LEVO1TAB40 PO (08:38)
[2024-09-12 08:53] VITALS: BP 157/67; O2SAT 95
== END 2024-09-12 09:14 | disposition home or self-care (01) ==
LOC: M ED 18:07
DX: K52.9 Noninfective gastroenteritis and colitis, unspecified (principal); C79.9 Secondary malignant neoplasm of unspecified site; R91.1 Solitary pulmonary nodule; R16.0 Hepatomegaly, not elsewhere classified; K57.30 Diverticulosis of large intestine without perforation or abscess without bleeding; E27.8 Other specified disorders of adrenal gland; Z88.0 Allergy status to penicillin; Z88.2 Allergy status to sulfonamides; Z88.8 Allergy status to other drugs, medicaments and biological substances; Z79.1 Long term (current) use of non-steroidal anti-inflammatories (NSAID); Z79.899 Other long term (current) drug therapy
CPT/HCPCS: 74177; 80048; 80076; 81001; 83690; 85025; 96374; 96375; 99284; J1308; J1885; J2405; Q9967

== ENCOUNTER 2024-09-27 11:13 | Inpatient (IN) | payer MEDICARE ==
[~2024-09-27] VITALS: Ht 162.6 cm; Wt 93.0 kg
[~2024-09-27 11:13] MED LIST changes: +ACET-716 PO; +IBUP-1022 PO; -IBUP600T42 PO; +LEVO1TAB40 PO; +NAPR-885 PO
[2024-09-27 12:25] LABS: BASO # 0.1 10^3/uL (0.0-0.2); BASO % 0.6 % (0.0-1.0); EOS # 0.6 10^3/uL (0.0-0.5); EOS % 5.2 % (0.0-3.0); LYMPH # 1.1 10^3/uL (1.5-5.0); LYMPH % 9.2 % (24.0-44.0); MONO # 1.0 10^3/uL (0.0-0.8); MONO % 8.8 % (2.0-8.0); NEUTROPHILS # 8.6 10^3/uL (1.5-8.5); NEUTROPHILS % 75.1 % (36.0-66.0); PLATELET COUNT, AUTOMATED 316 10^3/uL (150-450)
[2024-09-27 12:59] LABS: ALT/SGPT 14 U/L (7.0-40); AST/SGOT 75 U/L (<34); CALCIUM LEVEL 7.6 MG/DL (8.3-10.6); CARBON DIOXIDE LEVEL 28 MMOL/L (20-31); CHLORIDE LEVEL 103 MMOL/L (98-107); CREATININE FOR GFR 0.51 MG/DL (0.55-1.30); GLOMERULAR FILTRATION RATE > 90.0 (>39); POTASSIUM SERUM 3.7 MMOL/L (3.5-5.1); SODIUM LEVEL 145 MMOL/L (136-145)
[2024-09-27] MEDS: MORPHINE 4 MG/ML 1 ML VIAL IV ONE (13:29)
[2024-09-27] MEDS: NS (Normal Saline) 0.9% 1,000 ML IV SCH (13:30)
[2024-09-27] MEDS: ACETAMINOPHEN *IV* 1,000 MG in IV 1 EA IV ONE (13:30)
[2024-09-27] MEDS ORDERED: ISOVUE-370 76% 100 ML VIAL As Ordered ONE (13:49)
[2024-09-27] MEDS: ERTAPENEM SODIUM 1 GM in NS MINI-BAG PLUS 50 ML IV ONE (14:15)
[2024-09-27] MEDS: GASTROGRAFIN SOLUTION 30ML PO SCH (14:23)
[2024-09-27 16:21] LABS: KETONE, URINE AUTO RFX TRACE mg/dL (NEGATIVE); LEUKOCYTE ESTERASE UR AUTO RFX NEGATIVE (NEGATIVE); MUCUS, URINE RFX SMALL (NEGATIVE); NITRITE, URINE AUTO RFX NEGATIVE (NEGATIVE); RBC, URINE AUTO RFX 1 /HPF (0-3); SQUAM EPITHELIAL CELL UR AURFX 1 /HPF (0-6); WBC, URINE AUTO RFX 2 /HPF (0-3)
[2024-09-27] MEDS ORDERED: HYDROmorphone HCL 2 MG/ML 1 ML VIAL As Ordered ONE (17:26)
[2024-09-27] MEDS ORDERED: MIDAZOLAM INJ 2 MG/2 ML VIAL As Ordered ONE (17:26)
[2024-09-27] MEDS ORDERED: ROCURONIUM BROMIDE 50MG/5ML VIAL As Ordered ONE (17:27)
[2024-09-27] MEDS ORDERED: ONDANSETRON 4MG 2ML VIAL As Ordered ONE (17:27)
[2024-09-27] MEDS ORDERED: dexAMETHasone 4 MG/ML 1 ML VIAL As Ordered ONE (17:27)
[2024-09-27] MEDS ORDERED: LIDOCAINE 2% 100 MG/5 ML SDV (FOR ANES.) As Ordered ONE (17:27)
[2024-09-27] MEDS ORDERED: dexmedeTOMIDine (4 MCG/ML) 200 MCG/50 ML BTL As Ordered ONE (17:27)
[2024-09-27] MEDS ORDERED: HYDROMORPHONE HCL 0.5 MG/0.5 ML SYRINGE IV PRN (17:35)
[2024-09-27] MEDS ORDERED: ONDANSETRON 4MG 2ML VIAL IV PRN (17:35)
[2024-09-27] MEDS ORDERED: ACETAMINOPHEN 1000MG/100ML IV BAG As Ordered ONE (17:36)
[2024-09-27] MEDS ORDERED: HOME MED LIST COMPLETE! XX SCH (17:50)
[2024-09-27] MEDS ORDERED: ETOMIDATE 20 MG/10 ML VIAL As Ordered ONE (18:10)
[2024-09-27] MEDS ORDERED: SUCCINYLCHOLINE 100MG/5ML SYRINGE As Ordered ONE (18:34)
[2024-09-27] MEDS ORDERED: SUGAMMADEX SODIUM 500 MG/5 ML VIAL As Ordered ONE (18:46)
[2024-09-27] MEDS ORDERED: KETOROLAC 30 MG/ML 1 ML VIAL As Ordered ONE (18:46)
[2024-09-27] MEDS ORDERED: LACRILUBE (AKWA TEARS) OPHTH OINT 3.5 GM As Ordered ONE (18:52)
[2024-09-27] MEDS ORDERED: PHENYLephrine 500MCG 5ML (100MCG/ML) SYRINGE As Ordered ONE (19:16)
[2024-09-27 21:45] VITALS: BP 131/60; TEMP 96.7; O2SAT 92
[2024-09-27] MEDS: PANTOPRAZOLE 40MG VIAL IV SCH (21:52)
[2024-09-27] MEDS: MORPHINE 4 MG/ML 1 ML VIAL IV PRN (21:52)
[2024-09-27] MEDS: PIPERACILLIN/TAZOBACTAM SOD 3.375 GM in DEXTROSE 5% (D5W) ADV/MINI-BAG 50 ML IV SCH (21:52)
[2024-09-27 23:13] VITALS: BP 109/57; TEMP 97.3; O2SAT 95
[2024-09-28] VITALS (7 sets, daily range): BP systolic 118–153; BP diastolic 58–71; TEMP 96.5–97.1; O2SAT 92–95
[2024-09-28] MEDS: ACETAMINOPHEN *IV* 1,000 MG in IV 1 EA IV SCH (01:00)
[2024-09-28] MEDS: KETOROLAC 30 MG/ML 1 ML VIAL IV SCH ×2 (02:24→18:02)
[2024-09-28 05:36] LABS: BASO # 0.1 10^3/uL (0.0-0.2); BASO % 0.5 % (0.0-1.0); EOS # 0.1 10^3/uL (0.0-0.5); EOS % 0.7 % (0.0-3.0); LYMPH # 0.7 10^3/uL (1.5-5.0); LYMPH % 7.4 % (24.0-44.0); MONO # 0.7 10^3/uL (0.0-0.8); MONO % 6.9 % (2.0-8.0); NEUTROPHILS # 8.4 10^3/uL (1.5-8.5); NEUTROPHILS % 83.8 % (36.0-66.0); PLATELET COUNT, AUTOMATED 291 10^3/uL (150-450)
[2024-09-28 05:58] LABS: CALCIUM LEVEL 7.4 MG/DL (8.3-10.6); CARBON DIOXIDE LEVEL 26 MMOL/L (20-31); CHLORIDE LEVEL 105 MMOL/L (98-107); CREATININE FOR GFR 0.59 MG/DL (0.55-1.30); GLOMERULAR FILTRATION RATE > 90.0 (>39); POTASSIUM SERUM 3.9 MMOL/L (3.5-5.1); SODIUM LEVEL 146 MMOL/L (136-145)
[2024-09-28] MEDS: NS (Normal Saline) 0.9% 1,000 ML IV SCH (14:42)
[2024-09-28] MEDS: MORPHINE 4 MG/ML 1 ML VIAL IV PRN (22:43)
[2024-09-29 03:48] VITALS: BP 131/63; TEMP 97; O2SAT 95
[2024-09-29 05:59] LABS: BASO # 0.0 10^3/uL (0.0-0.2); BASO % 0.5 % (0.0-1.0); EOS # 0.0 10^3/uL (0.0-0.5); EOS % 0.1 % (0.0-3.0); LYMPH # 0.7 10^3/uL (1.5-5.0); LYMPH % 8.0 % (24.0-44.0); MONO # 0.6 10^3/uL (0.0-0.8); MONO % 6.6 % (2.0-8.0); NEUTROPHILS # 7.5 10^3/uL (1.5-8.5); NEUTROPHILS % 84.3 % (36.0-66.0); PLATELET COUNT, AUTOMATED 326 10^3/uL (150-450)
[2024-09-29 06:22] LABS: CALCIUM LEVEL 7.2 MG/DL (8.3-10.6); CARBON DIOXIDE LEVEL 26 MMOL/L (20-31); CHLORIDE LEVEL 107 MMOL/L (98-107); CREATININE FOR GFR 0.61 MG/DL (0.55-1.30); GLOMERULAR FILTRATION RATE > 90.0 (>39); POTASSIUM SERUM 3.8 MMOL/L (3.5-5.1); SODIUM LEVEL 145 MMOL/L (136-145)
[2024-09-29] MEDS: ONDANSETRON 4MG 2ML VIAL IV PRN (06:43)
[2024-09-29 07:53] VITALS: BP 143/64; TEMP 97; O2SAT 96
[2024-09-29 12:00] VITALS: BP 143/65; TEMP 97; O2SAT 96
[2024-09-29] MEDS ORDERED: MORPHINE 10 MG/0.5 ML ORAL CONCENTRATE SOLUTION U/D SL PRN (15:45)
[2024-09-29 16:01] VITALS: BP 143/69; TEMP 97.3; O2SAT 96
[2024-09-29] MEDS: MORPHINE 10 MG/0.5 ML ORAL CONCENTRATE SOLUTION U/D SL SCH (17:53)
[2024-09-29 20:44] VITALS: BP 132/63; TEMP 97.1; O2SAT 95
[2024-09-29] MEDS: OLANZapine ORAL DISINTEGRATING TAB 5MG PO SCH (21:00)
[2024-09-30] VITALS (9 sets, daily range): BP systolic 112–150; BP diastolic 58–67; TEMP 96.1–97.3; O2SAT 92–97
[2024-09-30 05:54] LABS: BASO # 0.1 10^3/uL (0.0-0.2); BASO % 0.6 % (0.0-1.0); EOS # 0.3 10^3/uL (0.0-0.5); EOS % 3.9 % (0.0-3.0); LYMPH # 0.9 10^3/uL (1.5-5.0); LYMPH % 10.7 % (24.0-44.0); MONO # 0.7 10^3/uL (0.0-0.8); MONO % 8.7 % (2.0-8.0); NEUTROPHILS # 6.2 10^3/uL (1.5-8.5); NEUTROPHILS % 75.6 % (36.0-66.0); PLATELET COUNT, AUTOMATED 315 10^3/uL (150-450)
[2024-09-30 06:15] LABS: CALCIUM LEVEL 7.0 MG/DL (8.3-10.6); CARBON DIOXIDE LEVEL 26 MMOL/L (20-31); CHLORIDE LEVEL 107 MMOL/L (98-107); CREATININE FOR GFR 0.55 MG/DL (0.55-1.30); GLOMERULAR FILTRATION RATE > 90.0 (>39); POTASSIUM SERUM 3.5 MMOL/L (3.5-5.1); SODIUM LEVEL 145 MMOL/L (136-145)
[2024-09-30 09:00] LABS: MAGNESIUM LEVEL 1.6 MG/DL (1.8-2.4)
[2024-09-30] MEDS: FUROSEMIDE 40 MG/4 ML VIAL IV ONE (10:37)
[2024-09-30] MEDS: MAG SULF 1GM/100ML (MAG RUN) 1 GM in IV 1 EA IV SCH (12:34)
[2024-10-01] VITALS (8 sets, daily range): BP systolic 118–138; BP diastolic 58–83; TEMP 96.4–99.8; O2SAT 92–97
[2024-10-01 05:59] LABS: BASO # 0.0 10^3/uL (0.0-0.2); BASO % 0.4 % (0.0-1.0); EOS # 0.0 10^3/uL (0.0-0.5); EOS % 0.0 % (0.0-3.0); LYMPH # 0.9 10^3/uL (1.5-5.0); LYMPH % 11.1 % (24.0-44.0); MONO # 0.9 10^3/uL (0.0-0.8); MONO % 11.1 % (2.0-8.0); NEUTROPHILS # 6.3 10^3/uL (1.5-8.5); NEUTROPHILS % 76.4 % (36.0-66.0); PLATELET COUNT, AUTOMATED 280 10^3/uL (150-450)
[2024-10-01 06:21] LABS: CALCIUM LEVEL 6.9 MG/DL (8.3-10.6); CARBON DIOXIDE LEVEL 23 MMOL/L (20-31); CHLORIDE LEVEL 105 MMOL/L (98-107); CREATININE FOR GFR 0.54 MG/DL (0.55-1.30); GLOMERULAR FILTRATION RATE > 90.0 (>39); MAGNESIUM LEVEL 1.9 MG/DL (1.8-2.4); POTASSIUM SERUM 3.3 MMOL/L (3.5-5.1); SODIUM LEVEL 141 MMOL/L (136-145)
[2024-10-01] MEDS: POTASSIUM CHLORIDE 10MEQ SR TABLET PO ONE ×2 (08:04→12:17)
[2024-10-01] MEDS: ENOXAPARIN 40 MG/0.4 ML SYRINGE (J1650 PER 10MG) SC SCH (08:04)
[2024-10-01] MEDS: VITAMIN D 1,000 INTERNATIONAL UNITS TABLET PO SCH (10:24)
[2024-10-01] MEDS: OMEPRAZOLE 20MG CAP PO SCH (10:24)
[2024-10-01] MEDS: SUCRALFATE SUSP 1GM/10ML UD PO SCH (10:24)
[2024-10-01] MEDS: FUROSEMIDE 40 MG/4 ML VIAL IV SCH (10:24)
[2024-10-01 10:25] LABS: ESTIMATED AVERAGE GLUCOSE 120.0 MG/DL (60-110)
[2024-10-01] MEDS: CEFDINIR 300 MG CAP PO SCH (20:18)
[2024-10-01] MEDS: PRAVASTATIN 20 MG TAB PO SCH (20:18)
[2024-10-02 01:30] VITALS: BP 143/58; TEMP 97.9; O2SAT 97
[2024-10-02 03:18] VITALS: BP 137/57; TEMP 97.7; O2SAT 96
[2024-10-02 07:26] LABS: BASO # 0.0 10^3/uL (0.0-0.2); BASO % 0.5 % (0.0-1.0); EOS # 0.2 10^3/uL (0.0-0.5); EOS % 2.6 % (0.0-3.0); LYMPH # 1.3 10^3/uL (1.5-5.0); LYMPH % 15.4 % (24.0-44.0); MONO # 1.0 10^3/uL (0.0-0.8); MONO % 12.8 % (2.0-8.0); NEUTROPHILS # 5.4 10^3/uL (1.5-8.5); NEUTROPHILS % 66.4 % (36.0-66.0); PLATELET COUNT, AUTOMATED 297 10^3/uL (150-450)
[2024-10-02 08:24] LABS: CALCIUM LEVEL 7.2 MG/DL (8.3-10.6); CARBON DIOXIDE LEVEL 27 MMOL/L (20-31); CHLORIDE LEVEL 104 MMOL/L (98-107); CREATININE FOR GFR 0.60 MG/DL (0.55-1.30); GLOMERULAR FILTRATION RATE > 90.0 (>39); MAGNESIUM LEVEL 1.7 MG/DL (1.8-2.4); POTASSIUM SERUM 4.1 MMOL/L (3.5-5.1); SODIUM LEVEL 142 MMOL/L (136-145)
[2024-10-02] MEDS ORDERED: FURO40TA2 PO (10:06)
[2024-10-02] MEDS ORDERED: ATIV1TAB10 PO (10:06)
[2024-10-02] MEDS ORDERED: OLAN10TA12 PO (10:06)
[2024-10-02] MEDS ORDERED: METR-265 PO (10:06)
[2024-10-02] MEDS ORDERED: CEFD300CAP PO (10:06)
[2024-10-02] MEDS ORDERED: MORP1SOL5 PO (10:06)
[2024-10-02] MEDS ORDERED: HYOS125TA PO (10:06)
[2024-10-02] MEDS: MAGNESIUM OXIDE 400 MG TAB PO ONE (11:19)
== END 2024-10-02 11:44 | disposition home health service (06) | DRG 356 ==
LOC: EDBD 11:13 → M ED 11:13 → EEVIPCON 17:44 → M ED INP 17:44 → M PCU 21:29 → M MS4PR 10-02 01:16 → M MSPAV 10-02 01:25
PROVIDERS: ADMIT Internal Medicine Nephrology; ATTEND Internal Medicine
PROC: 0WJG0ZZ Inspection of Peritoneal Cavity, Open Approach (ICD-10-PCS; principal; 2024-09-27 18:00)
DX: K66.8 Other specified disorders of peritoneum (principal); I50.33 Acute on chronic diastolic (congestive) heart failure; C78.7 Secondary malignant neoplasm of liver and intrahepatic bile duct; C78.6 Secondary malignant neoplasm of retroperitoneum and peritoneum; C78.00 Secondary malignant neoplasm of unspecified lung; C78.89 Secondary malignant neoplasm of other digestive organs; E87.20 Acidosis, unspecified; E78.5 Hyperlipidemia, unspecified; E11.9 Type 2 diabetes mellitus without complications; C43.9 Malignant melanoma of skin, unspecified; K21.9 Gastro-esophageal reflux disease without esophagitis; I11.0 Hypertensive heart disease with heart failure; E83.42 Hypomagnesemia; E87.6 Hypokalemia; K74.60 Unspecified cirrhosis of liver; Z92.25 Personal history of immunosuppression therapy; M51.360 Other intervertebral disc degeneration, lumbar region with discogenic back pain only; Z79.899 Other long term (current) drug therapy; Z88.0 Allergy status to penicillin; Z88.2 Allergy status to sulfonamides; Z88.8 Allergy status to other drugs, medicaments and biological substances; Z66 Do not resuscitate